=== PATIENT | female | born 1950 | race Caucasian/White ===

== ENCOUNTER 2019-03-18 17:44 | Inpatient (IN) | payer MEDICARE, BC ==
[~2019-03-18 17:44] MED LIST: Sodium Chloride 0.9% 10 ML Syringe FLUSH PRN
[2019-03-18 18:30] LABS: ANION GAP 16.5; CHLORIDE,CL 97 mmol/L (101-111); SODIUM,NA 129 mmol/L (135-145)
[2019-03-18] MEDS ORDERED: HYDROmorphone 1 MG/ML Syringe IVPUSH ONE (18:39)
[2019-03-18] MEDS ORDERED: Iopamidol 612 MG/ML 75 ML Bottle IVPUSH ONE (18:39)
--- NOTE | 2019-03-18 18:56 | EDM.PDOC ---
<Maria M Gaytan - Last Filed: 03/18/19 18:52> ED HPI GENERAL MEDICAL PROBLEM - General Chief Complaint: Abdominal Pain Stated Complaint: BACK/CHEST PAIN Time Seen by Provider: 03/18/19 18:00 Source of Information: Reports: Patient, Family, RN, RN Notes Reviewed History Limitations: Reports: No Limitations - History of Present Illness INITIAL COMMENTS - FREE TEXT/NARRATIVE: Pt to ER with c/o sharp lower abdominal pain, radiating into the back. Patient states the pain comes and goes. Also c/o pain radiating into the chest. Denies fever. States having chills today. Denies N/V/D. Admits to some constipation today. Patient denies any urinary sx. Denies medical problems. Takes meds for HTN, high cholesterol. Patient admits to some anxiety, took an anxiety medication prior to arrival. Onset: Today, Sudden Generalized Pain Score (Numeric/FACES): 6 - Related Data Allergies Allergy/AdvReac Type Severity Reaction Status Date / Time prochlorperazine edisylate Allergy Delusions Verified 03/18/19 17:50 [From Compazine] prochlorperazine maleate Allergy Delusions Verified 03/18/19 17:50 [From Compazine] Home Meds: Home Meds ALPRAZolam [ALPRAZolam ER] 1 mg PO PRN 01/21/14 [History] Lisinopril/Hydrochlorothiazide [Lisinopril-Hctz 10-12.5 mg Tab] 1 each PO DAILY 01/21/14 [History] Aspirin [Halfprin] 81 mg PO BEDTIME 03/18/19 [History] Multivits-Min/Iron/FA/Lutein [Centrum Silver Women Tablet] 1 each PO DAILY 03/18 [History] atorvaSTATin [Lipitor] 10 mg PO BEDTIME 03/18/19 [History] Past Medical History HEENT History: Reports: None Cardiovascular History: Reports: High Cholesterol, Hypertension Respiratory History: Reports: None Gastrointestinal History: Reports: None Genitourinary History: Reports: None ONCOLOGY PATIENT NAVIGATOR History: Reports: None Neurological History: Reports: None Psychiatric History: Reports: Anxiety Endocrine/Metabolic History: Reports: None Hematologic History: Reports: None Immunologic History: Reports: None Oncologic (Cancer) History: Reports: None Dermatologic History: Reports: None - Infectious Disease History Infectious Disease History: Reports: None - Past Surgical History Head Surgeries/Procedures: Reports: None HEENT Surgical History: Reports: Adenoidectomy, Tonsillectomy GI Surgical History: Reports: Appendectomy Female Surgical History: Reports: Hysterectomy Musculoskeletal Surgical History: Reports: Shoulder Surgery Social & Family History - Family History Family Medical History: Noncontributory - Tobacco Use Smoking Status *Q: Never Smoker Second Hand Smoke Exposure: No - Caffeine Use Caffeine Use: Reports: None - Recreational Drug Use Recreational Drug Use: No - Living Situation & Occupation Living situation: Reports: , with Family Occupation: Retired ED ROS GENERAL - Review of Systems Review Of Systems: ROS reveals no pertinent complaints other than HPI. ED EXAM, GENERAL - Physical Exam Exam: See Below Exam Limited By: No Limitations General Appearance: Alert, WD/WN, Anxious, Moderate Distress Eye Exam: Bilateral Eye: EOMI, Normal Inspection Ears: Normal External Exam, Hearing Grossly Normal Nose: Normal Inspection Throat/Mouth: Normal Inspection, Normal Voice, No Airway Compromise Head: Atraumatic, Normocephalic Neck: Normal Inspection, Supple, Non-Tender, Full Range of Motion Respiratory/Chest: No Respiratory Distress, Crackles (bases bilaterally) Cardiovascular: Normal Peripheral Pulses, Regular Rate, Rhythm, No Edema, No Gallop, No JVD, No Murmur, No Rub Peripheral Pulses: 2+: Radial (L), Radial (R) GI/Abdominal: Normal Bowel Sounds, Soft, Tender (RLQ, LLQ) (Female) Exam: Deferred Rectal (Female) Exam: Deferred Back Exam: Normal Inspection, CVA Tenderness (L), CVA Tenderness (R) Extremities: Normal Inspection, Normal Range of Motion, Non-Tender, Normal Capillary Refill, No Pedal Edema Neurological: Alert, Oriented, CN II-XII Intact, Normal Cognition, Normal Gait, Normal Reflexes, No Motor/Sensory Deficits Psychiatric: Anxious, Tearful Skin Exam: Warm, Dry, Intact, Normal Color, No Rash Lymphatic: No Adenopathy Course - Vital Signs Last Recorded V/S: Last Vital Signs Temp 37.4 C 03/18/19 17:51 Pulse 92 03/18/19 17:51 Resp 24 H 03/18/19 17:51 BP 148/69 H 03/18/19 17:51 Pulse Ox 95 03/18/19 17:51 - Orders/Labs/Meds Orders: Active Orders 24 hr Category Date Time Status EKG Documentation Completion [RC] STAT Care 03/18/19 17:39 Active Peripheral IV Care [RC] . DIRECTED Care 03/18/19 17:40 Active Abdomen Pelvis w Cont [CT] Urgent Exams 03/18/19 18:38 Taken Chest 1V Frontal [CR] Stat Exams 03/18/19 17:39 Taken CULTURE URINE [RM] Stat Lab 03/18/19 18:30 Received Sodium Chloride 0.9% [Saline Flush] Med 03/18/19 17:39 Active 10 ml FLUSH ASDIRECTED PRN Peripheral IV Insertion Adult [OM.PC] Stat Oth 03/18/19 17:39 Ordered Medication Orders Sodium Chloride (Saline Flush) 10 ml FLUSH ASDIRECTED PRN PRN Reason: Keep Vein Open Last Admin: 03/18/19 18:16 Dose: 10 ml Labs: Laboratory Tests 03/18/19 03/18/19 03/18/19 Range/Units 17:57 17:57 17:57 WBC 13.6 H (5.0-10.0) 10^3/uL RBC 4.07 L (4.2-5.4) 10^6/uL Hgb 12.2 (12.0-16.0) g/dL Hct 35.3 L (37.0-47.0) % MCV 86.7 (80-100) fL MCH 30.0 (27.0-34.0) pg MCHC 34.6 (33.0-35.0) g/dL Plt Count 334 (150-450) 10^3/uL Neut % (Auto) 81.8 H (42.2-75.2) % Lymph % (Auto) 10.4 L (20.5-50.1) % [place] % (Auto) 7.4 (2-8) % Eos % (Auto) 0.3 L (1.0-3.0) % Baso % (Auto) 0.1 (0.0-1.0) % PT 9.5 (9.0-12.0) SEC INR 0.9 (0.9-1.2) Sodium 129 L (135-145) mmol/L Potassium 3.5 L (3.6-5.0) mmol/L Chloride 97 L (101-111) mmol/L Carbon Dioxide 19.0 L (21.0-31.0) mmol/L Anion Gap 16.5 BUN 18 (7-18) mg/dL Creatinine 0.9 (0.6-1.3) mg/dL Est Cr Clr Drug Dosing 50.23 mL/min Estimated GFR (MDRD) > 60 BUN/Creatinine Ratio 20.00 Glucose 103 (74-105) mg/dL Calcium 9.0 (8.4-10.2) mg/dl Total Bilirubin 0.6 (0.2-1.0) mg/dL AST 24 (10-42) IU/L ALT 17 (10-60) IU/L Alkaline Phosphatase 72 (42-121) IU/L Troponin I < 0.02 (0.00-0.02) ng/ml Total Protein 6.8 (6.7-8.2) g/dl Albumin 4.1 (3.2-5.5) g/dl Globulin 2.7 Albumin/Globulin Ratio 1.52 Urine Color (YELLOW) Urine Appearance (CLEAR) Urine pH (5.0-9.0) Ur Specific [place] (1.005-1.030) Urine Protein (NEGATIVE) Urine Glucose (UA) (NEGATIVE) Urine Ketones (NEGATIVE) Urine Occult Blood (NEGATIVE) Urine Nitrite (NEGATIVE) Urine Bilirubin (NEGATIVE) Urine Urobilinogen (0.2-1.0) mg/dL Ur Leukocyte Esterase (NEGATIVE) Urine RBC /HPF Urine WBC (0-5/HPF) /HPF Ur Epithelial Cells (NOT SEEN) /HPF Urine Bacteria (0-FEW/HPF) /HPF 03/18/19 Range/Units 18:30 WBC (5.0-10.0) 10^3/uL RBC (4.2-5.4) 10^6/uL Hgb (12.0-16.0) g/dL Hct (37.0-47.0) % MCV (80-100) fL MCH (27.0-34.0) pg MCHC (33.0-35.0) g/dL Plt Count (150-450) 10^3/uL Neut % (Auto) (42.2-75.2) % Lymph % (Auto) (20.5-50.1) % [place] % (Auto) (2-8) % Eos % (Auto) (1.0-3.0) % Baso % (Auto) (0.0-1.0) % PT (9.0-12.0) SEC INR (0.9-1.2) Sodium (135-145) mmol/L Potassium (3.6-5.0) mmol/L Chloride (101-111) mmol/L Carbon Dioxide (21.0-31.0) mmol/L Anion Gap BUN (7-18) mg/dL Creatinine (0.6-1.3) mg/dL Est Cr Clr Drug Dosing mL/min Estimated GFR (MDRD) BUN/Creatinine Ratio Glucose (74-105) mg/dL Calcium (8.4-10.2) mg/dl Total Bilirubin (0.2-1.0) mg/dL AST (10-42) IU/L ALT (10-60) IU/L Alkaline Phosphatase (42-121) IU/L Troponin I (0.00-0.02) ng/ml Total Protein (6.7-8.2) g/dl Albumin (3.2-5.5) g/dl Globulin Albumin/Globulin Ratio Urine Color Yellow (YELLOW) Urine Appearance Clear (CLEAR) Urine pH 8.5 (5.0-9.0) Ur Specific [place] 1.015 (1.005-1.030) Urine Protein Negative (NEGATIVE) Urine Glucose (UA) Negative (NEGATIVE) Urine Ketones Negative (NEGATIVE) Urine Occult Blood Trace-intact H (NEGATIVE) Urine Nitrite Negative (NEGATIVE) Urine Bilirubin Negative (NEGATIVE) Urine Urobilinogen 0.2 (0.2-1.0) mg/dL Ur Leukocyte Esterase Moderate H (NEGATIVE) Urine RBC 0-5 /HPF Urine WBC 5-10 H (0-5/HPF) /HPF Ur Epithelial Cells Occasional (NOT SEEN) /HPF Urine Bacteria Few (0-FEW/HPF) /HPF Meds: Medications Generic Name Dose Route Start Last Admin Trade Name Freq PRN Reason Stop Dose Admin Sodium Chloride 10 ml 03/18/19 17:39 03/18/19 18:16 Saline Flush FLUSH 10 ml ASDIRECTED PRN Administration Keep Vein Open Discontinued Medications Generic Name Dose Route Start Last Admin Trade Name Freq PRN Reason Stop Dose Admin Hydromorphone HCl 1 mg 03/18/19 18:39 03/18/19 19:16 Dilaudid IVPUSH 03/18/19 18:40 1 mg ONETIME ONE Administration Iopamidol 75 ml 03/18/19 18:39 03/18/19 18:48 Isovue-300 (61%) IVPUSH 03/18/19 18:40 75 ml ONETIME ONE Administration - Radiology Interpretation Free Text/Narrative:: Chest xray: See rad report Departure - Departure Disposition: Admitted As Inpatient 64 Clinical Impression: Diverticulitis large intestine w/o perforation or abscess w/o bleeding, Hyponatremia syndrome - Discharge Information Forms: ED Department Discharge <Steffen Turk - Last Filed: 03/18/19 19:55> Course - Re-Assessments/Exams Free Text/Narrative Re-Assessment/Exam: 03/18/19 19:[address] Rivera who kindly admitted pt Departure - Departure Time of Disposition: 19:54 Condition: Good
[2019-03-18] MEDS ORDERED: ALPRAZOLAM 0.5 MG PO PRN (21:17)
[2019-03-18] MEDS ORDERED: Ondansetron 4 MG/2 ML SDV IVPUSH PRN (21:19)
[2019-03-18] MEDS ORDERED: Docusate Sodium 100 MG Cap PO PRN (21:19)
[2019-03-18] MEDS ORDERED: Piperacillin/Tazobactam 3.375 GM in Sodium Chloride 0.9% 100 ML IV SCH (21:30)
[2019-03-18] MEDS: diphenhydrAMINE 25 MG Tab PO PRN (21:58)
[2019-03-18] MEDS: Calcium Carbonate 500 MG Tab.Chew PO PRN (21:58)
[2019-03-18] MEDS: ALPRAZolam 0.5 MG Tab PO PRN (22:03)
[2019-03-18] MEDS: Heparin Sodium 5,000 Units/ML Vial SUBCUT SCH (22:12)
[2019-03-18] MEDS: Piperacillin/Tazobactam 3.375 GM in Sodium Chloride 0.9% 100 ML IV SCH (23:11)
[2019-03-18] MEDS ORDERED: Potassium Chloride 10 MEQ Tab.ER PO ONE (23:15)
--- NOTE | 2019-03-18 23:15 | PCM.HP ---
H&P History of Present Illness - General Date of Service: 03/18/19 Admit Problem/Dx: Admission Diagnosis/Problem Admission Diagnosis/Problem Diverticulitis Source of Information: Patient - History of Present Illness Initial Comments - Free Text/Narative: 68-year-old generally active lady with a history of hypertension, dyslipidemia. Has developed lower abdominal pain. The pain has imprisoned for about 2 weeks on and off. Got more severe on the day of admission. No associated fever, had nausea. No vomiting. Also had an episode of chest pain. Not associated with shortness of breath. Quality: Reports: Sharp Severity: Moderate Improves with: Reports: Medication (Dilaudid in the emergency room) Context: Reports: Activity/Exercise (With no associated chest pain). Denies: Sick Contact Associated Symptoms: Reports: Other (Anxiety) Generalized Pain Score (Numeric/FACES): 6 - Related Data Allergies/Adverse Reactions: Allergies Allergy/AdvReac Type Severity Reaction Status Date / Time prochlorperazine edisylate Allergy Delusions Verified 03/18/19 20:36 [From Compazine] Home Medications: Home Meds Lisinopril/Hydrochlorothiazide [Lisinopril-Hctz 10-12.5 mg Tab] 1 tab PO DAILY 01/21/14 [History] ALPRAZolam [Alprazolam] 0.5 mg PO BID PRN 03/18/19 [History] Aspirin [Halfprin] 81 mg PO BEDTIME 03/18/19 [History] Multivits-Min/Iron/FA/Lutein [Centrum Silver Women Tablet] 1 tab PO DAILY [History] atorvaSTATin [Lipitor] 10 mg PO BEDTIME 03/18/19 [History] Past Medical History HEENT History: Reports: Impaired Vision Cardiovascular History: Reports: High Cholesterol, Hypertension Respiratory History: Reports: None Gastrointestinal History: Reports: None Genitourinary History: Reports: None COMPOUNDER History: Reports: None Musculoskeletal History: Reports: None Neurological History: Reports: Seizure Psychiatric History: Reports: Anxiety Endocrine/Metabolic History: Reports: None Hematologic History: Reports: None Immunologic History: Reports: None Oncologic (Cancer) History: Reports: Cervix Dermatologic History: Reports: None - Infectious Disease History Infectious Disease History: Reports: None - Past Surgical History Head Surgeries/Procedures: Reports: None HEENT Surgical History: Reports: Adenoidectomy, Tonsillectomy Cardiovascular Surgical History: Reports: None GI Surgical History: Reports: Appendectomy, Colonoscopy Female Surgical History: Reports: Hysterectomy Neurological Surgical History: Reports: None Musculoskeletal Surgical History: Reports: Shoulder Surgery Oncologic Surgical History: Reports: Other (See Below) Other Oncologic Surgeries/Procedures: Hysterectomy Social & Family History - Family History Family Medical History: Noncontributory - Tobacco Use Smoking Status *Q: Never Smoker Second Hand Smoke Exposure: No - Caffeine Use Caffeine Use: Reports: None - Recreational Drug Use Recreational Drug Use: No - Living Situation & Occupation Living situation: Reports: , with Family Occupation: Retired H&P Review of Systems - Review of Systems: Review Of Systems: See Below General: Denies: Fever, Chills Pulmonary: Denies: Shortness of Breath Cardiovascular: Reports: Chest Pain. Denies: Edema Gastrointestinal: Reports: Abdominal Pain Genitourinary: Denies: Dysuria, Frequency Neurological: Denies: Confusion, Dizziness Exam - Exam Exam: See Below - Vital Signs Vital Signs: Last Vital Signs Temp 37.2 C 03/18/19 23:10 Pulse 83 03/18/19 23:10 Resp 18 03/18/19 23:10 BP 108/52 L 03/18/19 23:10 Pulse Ox 100 03/18/19 23:10 Weight: 57.243 kg - Exam General: Alert, Oriented Neck: Supple Lungs: Clear to Auscultation, Normal Respiratory Effort Cardiovascular: Regular Rate, Regular Rhythm GI/Abdominal Exam: Normal Bowel Sounds, Soft, Tender (Bilateral lower quadrants) . No: Rigid, Rebound Rectal (Female) Exam: Normal Exam Extremities: No Pedal Edema Skin: Warm, Dry Neuro Extensive - Mental Status: Alert, Oriented x3 Psychiatric: Alert, Normal Affect, Normal Mood - Patient Data Lab Results Last 24 hrs: Laboratory Results - last 24 hr 03/18/19 03/18/19 03/18/19 Range/Units 17:57 17:57 17:57 WBC 13.6 H (5.0-10.0) 10^3/uL RBC 4.07 L (4.2-5.4) 10^6/uL Hgb 12.2 (12.0-16.0) g/dL Hct 35.3 L (37.0-47.0) % MCV 86.7 (80-100) fL MCH 30.0 (27.0-34.0) pg MCHC 34.6 (33.0-35.0) g/dL Plt Count 334 (150-450) 10^3/uL Neut % (Auto) 81.8 H (42.2-75.2) % Lymph % (Auto) 10.4 L (20.5-50.1) % [place] % (Auto) 7.4 (2-8) % Eos % (Auto) 0.3 L (1.0-3.0) % Baso % (Auto) 0.1 (0.0-1.0) % PT 9.5 (9.0-12.0) SEC INR 0.9 (0.9-1.2) Sodium 129 L (135-145) mmol/L Potassium 3.5 L (3.6-5.0) mmol/L Chloride 97 L (101-111) mmol/L Carbon Dioxide 19.0 L (21.0-31.0) mmol/L Anion Gap 16.5 BUN 18 (7-18) mg/dL Creatinine 0.9 (0.6-1.3) mg/dL Est Cr Clr Drug Dosing 50.23 mL/min Estimated GFR (MDRD) > 60 BUN/Creatinine Ratio 20.00 Glucose 103 (74-105) mg/dL Calcium 9.0 (8.4-10.2) mg/dl Total Bilirubin 0.6 (0.2-1.0) mg/dL AST 24 (10-42) IU/L ALT 17 (10-60) IU/L Alkaline Phosphatase 72 (42-121) IU/L Troponin I < 0.02 (0.00-0.02) ng/ml Total Protein 6.8 (6.7-8.2) g/dl Albumin 4.1 (3.2-5.5) g/dl Globulin 2.7 Albumin/Globulin Ratio 1.52 Urine Color (YELLOW) Urine Appearance (CLEAR) Urine pH (5.0-9.0) Ur Specific [place] (1.005-1.030) Urine Protein (NEGATIVE) Urine Glucose (UA) (NEGATIVE) Urine Ketones (NEGATIVE) Urine Occult Blood (NEGATIVE) Urine Nitrite (NEGATIVE) Urine Bilirubin (NEGATIVE) Urine Urobilinogen (0.2-1.0) mg/dL Ur Leukocyte Esterase (NEGATIVE) Urine RBC /HPF Urine WBC (0-5/HPF) /HPF Ur Epithelial Cells (NOT SEEN) /HPF Urine Bacteria (0-FEW/HPF) /HPF 03/18/19 Range/Units 18:30 WBC (5.0-10.0) 10^3/uL RBC (4.2-5.4) 10^6/uL Hgb (12.0-16.0) g/dL Hct (37.0-47.0) % MCV (80-100) fL MCH (27.0-34.0) pg MCHC (33.0-35.0) g/dL Plt Count (150-450) 10^3/uL Neut % (Auto) (42.2-75.2) % Lymph % (Auto) (20.5-50.1) % [place] % (Auto) (2-8) % Eos % (Auto) (1.0-3.0) % Baso % (Auto) (0.0-1.0) % PT (9.0-12.0) SEC INR (0.9-1.2) Sodium (135-145) mmol/L Potassium (3.6-5.0) mmol/L Chloride (101-111) mmol/L Carbon Dioxide (21.0-31.0) mmol/L Anion Gap BUN (7-18) mg/dL Creatinine (0.6-1.3) mg/dL Est Cr Clr Drug Dosing mL/min Estimated GFR (MDRD) BUN/Creatinine Ratio Glucose (74-105) mg/dL Calcium (8.4-10.2) mg/dl Total Bilirubin (0.2-1.0) mg/dL AST (10-42) IU/L ALT (10-60) IU/L Alkaline Phosphatase (42-121) IU/L Troponin I (0.00-0.02) ng/ml Total Protein (6.7-8.2) g/dl Albumin (3.2-5.5) g/dl Globulin Albumin/Globulin Ratio Urine Color Yellow (YELLOW) Urine Appearance Clear (CLEAR) Urine pH 8.5 (5.0-9.0) Ur Specific [place] 1.015 (1.005-1.030) Urine Protein Negative (NEGATIVE) Urine Glucose (UA) Negative (NEGATIVE) Urine Ketones Negative (NEGATIVE) Urine Occult Blood Trace-intact H (NEGATIVE) Urine Nitrite Negative (NEGATIVE) Urine Bilirubin Negative (NEGATIVE) Urine Urobilinogen 0.2 (0.2-1.0) mg/dL Ur Leukocyte Esterase Moderate H (NEGATIVE) Urine RBC 0-5 /HPF Urine WBC 5-10 H (0-5/HPF) /HPF Ur Epithelial Cells Occasional (NOT SEEN) /HPF Urine Bacteria Few (0-FEW/HPF) /HPF Result Diagrams: 03/18/19 17:57 03/18/19 17:57 - Problem List (1) Diverticulitis large intestine w/o perforation or abscess w/o bleeding SNOMED Code(s): 8543786 ICD Code: K57.32 - DVTRCLI OF LG INT W/O PERFORATION OR ABSCESS W/O BLEEDING Status: Acute Current Visit: Yes (2) Hyponatremia syndrome SNOMED Code(s): 6229199 ICD Code: E87.1 - HYPO-OSMOLALITY AND HYPONATREMIA Status: Acute Current Visit: Yes Problem List Initiated/Reviewed/Updated: Yes Orders Last 24hrs: Active Orders 24 hr Category Date Time Status Patient Status [ADT] Routine ADT 03/18/19 21:19 Active Antiembolic Devices [RC] 08,20 Care 03/18/19 21:21 Active Oxygen Therapy [RC] .PRN Care 03/18/19 21:19 Active Up ad [place] [RC] ASDIRECTED Care 03/18/19 21:19 Active VTE/DVT Education [RC] PER UNIT ROUTINE Care 03/18/19 21:19 Active Vital Signs [RC] 00,04,08,12,16,20 Care 03/18/19 21:19 Active Full Liquid Diet [DIET] Diet 03/18/19 Breakfast Active BASIC METABOLIC PANEL,BMP [CHEM] AM Lab 03/19/19 05:15 Ordered CBC WITH AUTO DIFF [HEME] AM Lab 03/19/19 05:15 Ordered CULTURE BLOOD [BC] Stat Lab 03/18/19 21:41 Received CULTURE BLOOD [BC] Stat Lab 03/18/19 21:46 Received CULTURE URINE [RM] Stat Lab 03/18/19 18:30 Received TROPONIN I [CHEM] AM Lab 03/19/19 05:11 Ordered ALPRAZolam [Xanax] Med 03/18/19 21:44 Active 0.5 mg PO BID PRN Acetaminophen [Tylenol] Med 03/18/19 21:19 Active 650 mg PO Q4H PRN Acetaminophen/HYDROcodone [[place] 325-10 MG] Med 03/18/19 21:19 Active 1 tab PO Q4H PRN Aspirin [Halfprin] Med 03/19/19 21:00 Active 81 mg PO BEDTIME Calcium Carbonate [Tums] Med 03/18/19 21:16 Active 500 mg PO Q2H PRN Docusate Sodium [Colace] Med 03/18/19 21:19 Active 100 mg PO BID PRN Heparin Sodium Med 03/18/19 22:00 Active 5,000 units SUBCUT Q8HR Lisinopril [Prinivil] Med 03/19/19 09:00 Active 10 mg PO DAILY Morphine Med 03/18/19 21:19 Active 1 mg IVPUSH Q2H PRN Ondansetron [Zofran ODT] Med 03/18/19 21:19 Active 4 mg PO Q6H PRN Ondansetron [Zofran] Med 03/18/19 21:19 Active 4 mg IVPUSH Q6H PRN Piperacillin/Tazobactam [Zosyn] 3.375 gm Med 03/19/19 00:00 Active Sodium Chloride 0.9% [Normal Saline] 100 ml IV Q6H Sodium Chloride 0.9% [Saline Flush] Med 03/18/19 17:39 Active 10 ml FLUSH ASDIRECTED PRN atorvaSTATin [Lipitor] Med 03/19/19 21:00 Active 10 mg PO BEDTIME diphenhydrAMINE [Benadryl] Med 03/18/19 21:17 Active 25 mg PO BEDTIME PRN hydroCHLOROthiazide Med 03/19/19 09:00 Active 12.5 mg PO DAILY Antiembolic Hose [OM.PC] Per Unit Routine Oth 03/18/19 21:20 Ordered Blood Culture x2 Reflex Set [OM.PC] Stat Oth 03/18/19 21:16 Ordered Peripheral IV Insertion Adult [OM.PC] Stat Oth 03/18/19 17:39 Ordered Resuscitation Status Routine Resus Stat 03/18/19 21:19 Ordered Medication Orders Acetaminophen (Tylenol) 650 mg PO Q4H PRN PRN Reason: Pain (Mild 1-3)/fever Hydrocodone Bitart/Acetaminophen ([place] 325-10 Mg) 1 tab PO Q4H PRN PRN Reason: Pain (moderate 4-6) Alprazolam (Xanax) 0.5 mg PO BID PRN PRN Reason: Anxiety Last Admin: 03/18/19 22:03 Dose: 0.5 mg Aspirin (Halfprin) 81 mg PO BEDTIME MONIKA Atorvastatin Calcium (Lipitor) 10 mg PO BEDTIME [facility] Calcium Carbonate/Glycine (Tums) 500 mg PO Q2H PRN PRN Reason: Heartburn Last Admin: 03/18/19 21:58 Dose: 500 mg Diphenhydramine HCl (Benadryl) 25 mg PO BEDTIME PRN PRN Reason: Sleep Last Admin: 03/18/19 21:58 Dose: 25 mg Docusate Sodium (Colace) 100 mg PO BID PRN PRN Reason: Constipation Heparin Sodium (Porcine) (Heparin Sodium) 5,000 units SUBCUT Q8HR MONIKA Last Admin: 03/18/19 22:12 Dose: 5,000 units Hydrochlorothiazide (Hydrochlorothiazide) 12.5 mg PO DAILY [facility] Piperacillin Sod/Tazobactam (Sod 3.375 gm/ Sodium Chloride) 100 mls @ 200 mls/ hr IV Q6H [facility] Lisinopril (Prinivil) 10 mg PO DAILY [facility] Morphine Sulfate (Morphine) 1 mg IVPUSH Q2H PRN PRN Reason: Pain (severe 7-10) Ondansetron HCl (Zofran) 4 mg IVPUSH Q6H PRN PRN Reason: Nausea/Vomiting Ondansetron HCl (Zofran Odt) 4 mg PO Q6H PRN PRN Reason: nausea, able to take PO Sodium Chloride (Saline Flush) 10 ml FLUSH ASDIRECTED PRN PRN Reason: Keep Vein Open Last Admin: 03/18/19 18:16 Dose: 10 ml Assessment/Plan Comment:: 68-year-old lady presented with abdominal pain CT showed diverticulitis without abscess Obtain blood culture Start empirical treatment with Zosyn Clear liquid diet Hypokalemia We'll replace and recheck Hyponatremia Will give IV fluids and recheck Hypertension Continue lisinopril If hyponatremia does not correct stop hydrochlorothiazide Anxiety Use Xanax when necessary Chest pain Atypical For now check troponin Follow-up as outpatient Aspirin for prophylaxis DVT prophylaxis with subcutaneous heparin
[2019-03-18] MEDS: NS + KCl 20mEq/L 1,000 ML IV SCH (23:46)
[2019-03-19] MEDS: Acetaminophen 325 MG Tab PO PRN (00:40)
[2019-03-19] MEDS: Calcium Carbonate 500 MG Tab.Chew PO PRN ×4 (00:40→20:35)
[2019-03-19] MEDS: Piperacillin/Tazobactam 3.375 GM in Sodium Chloride 0.9% 100 ML IV SCH ×3 (05:12→17:15)
[2019-03-19] MEDS: Heparin Sodium 5,000 Units/ML Vial SUBCUT SCH ×3 (05:12→22:01)
[2019-03-19 06:58] LABS: ANION GAP 12.4; CHLORIDE,CL 103 mmol/L (101-111); SODIUM,NA 132 mmol/L (135-145)
[2019-03-19] MEDS: Hydrochlorothiazide 25 MG Tab PO SCH (08:12)
[2019-03-19] MEDS: Lisinopril 10 MG Tab PO SCH (08:12)
[2019-03-19] MEDS ORDERED: Loperamide 2 MG Cap PO PRN (11:11)
--- NOTE | 2019-03-19 11:14 | PCM.PN ---
- General Info Date of Service: 03/19/19 Admission Dx/Problem (Free Text): Admission Diagnosis/Problem Admission Diagnosis/Problem Diverticulitis Subjective Update: Continues to have mild to moderate sharp pain in the lower abdominal areas. Associated with diarrhea. No fever or chills. No further chest pain. No shortness of breath. - Review of Systems General: Denies: Weakness Pulmonary: Denies: Shortness of Breath Cardiovascular: Denies: Chest Pain, Palpitations Gastrointestinal: Reports: Abdominal Pain Genitourinary: Denies: Dysuria Neurological: Denies: Confusion - Patient Data Vitals - Most Recent: Last Vital Signs Temp 36.4 C 03/19/19 08:15 Pulse 84 03/19/19 08:15 Resp 20 03/19/19 08:15 BP 95/45 L 03/19/19 08:15 Pulse Ox 100 03/19/19 08:15 Weight - Most Recent: 57.243 kg I&O - Last 24 Hours: Intake & Output 03/18/19 03/19/19 03/19/19 22:59 06:59 14:59 Intake Total 200 50 Output Total 700 Balance -500 50 Lab Results Last 24 Hours: Laboratory Results - last 24 hr 03/18/19 03/18/19 03/18/19 Range/Units 17:57 17:57 17:57 WBC 13.6 H (5.0-10.0) 10^3/uL RBC 4.07 L (4.2-5.4) 10^6/uL Hgb 12.2 (12.0-16.0) g/dL Hct 35.3 L (37.0-47.0) % MCV 86.7 (80-100) fL MCH 30.0 (27.0-34.0) pg MCHC 34.6 (33.0-35.0) g/dL Plt Count 334 (150-450) 10^3/uL Neut % (Auto) 81.8 H (42.2-75.2) % Lymph % (Auto) 10.4 L (20.5-50.1) % [place] % (Auto) 7.4 (2-8) % Eos % (Auto) 0.3 L (1.0-3.0) % Baso % (Auto) 0.1 (0.0-1.0) % PT 9.5 (9.0-12.0) SEC INR 0.9 (0.9-1.2) Sodium 129 L (135-145) mmol/L Potassium 3.5 L (3.6-5.0) mmol/L Chloride 97 L (101-111) mmol/L Carbon Dioxide 19.0 L (21.0-31.0) mmol/L Anion Gap 16.5 BUN 18 (7-18) mg/dL Creatinine 0.9 (0.6-1.3) mg/dL Est Cr Clr Drug Dosing 50.23 mL/min Estimated GFR (MDRD) > 60 BUN/Creatinine Ratio 20.00 Glucose 103 (74-105) mg/dL Calcium 9.0 (8.4-10.2) mg/dl Total Bilirubin 0.6 (0.2-1.0) mg/dL AST 24 (10-42) IU/L ALT 17 (10-60) IU/L Alkaline Phosphatase 72 (42-121) IU/L Troponin I < 0.02 (0.00-0.02) ng/ml Total Protein 6.8 (6.7-8.2) g/dl Albumin 4.1 (3.2-5.5) g/dl Globulin 2.7 Albumin/Globulin Ratio 1.52 Urine Color (YELLOW) Urine Appearance (CLEAR) Urine pH (5.0-9.0) Ur Specific [place] (1.005-1.030) Urine Protein (NEGATIVE) Urine Glucose (UA) (NEGATIVE) Urine Ketones (NEGATIVE) Urine Occult Blood (NEGATIVE) Urine Nitrite (NEGATIVE) Urine Bilirubin (NEGATIVE) Urine Urobilinogen (0.2-1.0) mg/dL Ur Leukocyte Esterase (NEGATIVE) Urine RBC /HPF Urine WBC (0-5/HPF) /HPF Ur Epithelial Cells (NOT SEEN) /HPF Urine Bacteria (0-FEW/HPF) /HPF 03/18/19 03/19/19 03/19/19 Range/Units 18:30 06:09 06:09 WBC 9.3 (5.0-10.0) 10^3/uL RBC 3.87 L (4.2-5.4) 10^6/uL Hgb 11.7 L (12.0-16.0) g/dL Hct 34.3 L (37.0-47.0) % MCV 88.6 (80-100) fL MCH 30.2 (27.0-34.0) pg MCHC 34.1 (33.0-35.0) g/dL Plt Count 300 (150-450) 10^3/uL Neut % (Auto) 72.7 (42.2-75.2) % Lymph % (Auto) 16.6 L (20.5-50.1) % [place] % (Auto) 9.9 H (2-8) % Eos % (Auto) 0.6 L (1.0-3.0) % Baso % (Auto) 0.2 (0.0-1.0) % PT (9.0-12.0) SEC INR (0.9-1.2) Sodium 132 L (135-145) mmol/L Potassium 4.4 (3.6-5.0) mmol/L Chloride 103 (101-111) mmol/L Carbon Dioxide 21.0 (21.0-31.0) mmol/L Anion Gap 12.4 BUN 12 (7-18) mg/dL Creatinine 1.0 (0.6-1.3) mg/dL Est Cr Clr Drug Dosing 43.30 mL/min Estimated GFR (MDRD) 55 BUN/Creatinine Ratio Glucose 110 H (74-105) mg/dL Calcium 8.7 (8.4-10.2) mg/dl Total Bilirubin (0.2-1.0) mg/dL AST (10-42) IU/L ALT (10-60) IU/L Alkaline Phosphatase (42-121) IU/L Troponin I < 0.02 (0.00-0.02) ng/ml Total Protein (6.7-8.2) g/dl Albumin (3.2-5.5) g/dl Globulin Albumin/Globulin Ratio Urine Color Yellow (YELLOW) Urine Appearance Clear (CLEAR) Urine pH 8.5 (5.0-9.0) Ur Specific [place] 1.015 (1.005-1.030) Urine Protein Negative (NEGATIVE) Urine Glucose (UA) Negative (NEGATIVE) Urine Ketones Negative (NEGATIVE) Urine Occult Blood Trace-intact H (NEGATIVE) Urine Nitrite Negative (NEGATIVE) Urine Bilirubin Negative (NEGATIVE) Urine Urobilinogen 0.2 (0.2-1.0) mg/dL Ur Leukocyte Esterase Moderate H (NEGATIVE) Urine RBC 0-5 /HPF Urine WBC 5-10 H (0-5/HPF) /HPF Ur Epithelial Cells Occasional (NOT SEEN) /HPF Urine Bacteria Few (0-FEW/HPF) /HPF Med Orders - Current: Current Medications Acetaminophen (Tylenol) 650 mg PO Q4H PRN PRN Reason: Pain (Mild 1-3)/fever Last Admin: 03/19/19 00:40 Dose: 650 mg Hydrocodone Bitart/Acetaminophen ([place] 325-10 Mg) 1 tab PO Q4H PRN PRN Reason: Pain (moderate 4-6) Alprazolam (Xanax) 0.5 mg PO BID PRN PRN Reason: Anxiety Last Admin: 03/18/19 22:03 Dose: 0.5 mg Aspirin (Halfprin) 81 mg PO BEDTIME MONIKA Atorvastatin Calcium (Lipitor) 10 mg PO BEDTIME [facility] Calcium Carbonate/Glycine (Tums) 500 mg PO Q2H PRN PRN Reason: Heartburn Last Admin: 03/19/19 11:10 Dose: 500 mg Diphenhydramine HCl (Benadryl) 25 mg PO BEDTIME PRN PRN Reason: Sleep Last Admin: 03/18/19 21:58 Dose: 25 mg Docusate Sodium (Colace) 100 mg PO BID PRN PRN Reason: Constipation Heparin Sodium (Porcine) (Heparin Sodium) 5,000 units SUBCUT Q8HR [facility] Last Admin: 03/19/19 05:12 Dose: 5,000 units Hydrochlorothiazide (Hydrochlorothiazide) 12.5 mg PO DAILY [facility] Last Admin: 03/19/19 08:12 Dose: 12.5 mg Piperacillin Sod/Tazobactam (Sod 3.375 gm/ Sodium Chloride) 100 mls @ 200 mls/ hr IV Q6H [facility] Last Admin: 03/19/19 05:12 Dose: 200 mls/hr Potassium Chloride/Sodium Chloride (Normal Saline With 20 Meq Kcl) 1,000 mls @ 75 mls/hr IV ASDIRECTED [facility] Last Admin: 03/18/19 23:46 Dose: 75 mls/hr Lisinopril (Prinivil) 10 mg PO DAILY [facility] Last Admin: 03/19/19 08:12 Dose: 10 mg Loperamide HCl (Imodium) 2 mg PO Q6H PRN PRN Reason: Diarrhea Morphine Sulfate (Morphine) 1 mg IVPUSH Q2H PRN PRN Reason: Pain (severe 7-10) Ondansetron HCl (Zofran) 4 mg IVPUSH Q6H PRN PRN Reason: Nausea/Vomiting Ondansetron HCl (Zofran Odt) 4 mg PO Q6H PRN PRN Reason: nausea, able to take PO Sodium Chloride (Saline Flush) 10 ml FLUSH ASDIRECTED PRN PRN Reason: Keep Vein Open Last Admin: 03/18/19 18:16 Dose: 10 ml Discontinued Medications Hydromorphone HCl (Dilaudid) 1 mg IVPUSH ONETIME ONE Stop: 03/18/19 18:40 Last Admin: 03/18/19 19:16 Dose: 1 mg Piperacillin Sod/Tazobactam (Sod 3.375 gm/ Sodium Chloride) 100 mls @ 200 mls/ hr IV Q6H [facility]IKA Last Admin: 03/18/19 21:57 Dose: 200 mls/hr Iopamidol (Isovue-300 (61%)) 75 ml IVPUSH ONETIME ONE Stop: 03/18/19 18:40 Last Admin: 03/18/19 18:48 Dose: 75 ml Non-Formulary Medication (Alprazolam [Alprazolam Er]) 0.5 mg PO BID PRN PRN Reason: Anxiety Potassium Chloride (Klor-Con 10) 40 meq PO ONETIME ONE Stop: 03/18/19 23:16 Last Admin: 03/18/19 23:45 Dose: 40 meq - Exam General: Alert, Oriented Neck: Supple Lungs: Clear to Auscultation, Normal Respiratory Effort Cardiovascular: Regular Rate, Regular Rhythm GI/Abdominal Exam: Normal Bowel Sounds, Soft, Non-Tender Extremities: No Pedal Edema Skin: Warm, Dry Neurological: No New Focal Deficit Psy/Mental Status: Alert, Normal Affect, Normal Mood - Problem List & Annotations (1) Diverticulitis large intestine w/o perforation or abscess w/o bleeding SNOMED Code(s): 3268276 Code(s): K57.32 - DVTRCLI OF LG INT W/O PERFORATION OR ABSCESS W/O BLEEDING Status: Acute Current Visit: Yes (2) Hyponatremia syndrome SNOMED Code(s): 0304135 Code(s): E87.1 - HYPO-OSMOLALITY AND HYPONATREMIA Status: Acute Current Visit: Yes - Problem List Review Problem List Initiated/Reviewed/Updated: Yes - My Orders Last 24 Hours: My Active Orders 03/18/19 21:16 Calcium Carbonate [Tums] 500 mg PO Q2H PRN Blood Culture x2 Reflex Set [OM.PC] Stat 03/18/19 21:17 diphenhydrAMINE [Benadryl] 25 mg PO BEDTIME PRN 03/18/19 21:19 Patient Status [ADT] Routine Oxygen Therapy [RC] .PRN Up ad [place]anza [RC] ASDIRECTED VTE/DVT Education [RC] PER UNIT ROUTINE Vital Signs [RC] 00,04,08,12,16,20 Acetaminophen [Tylenol] 650 mg PO Q4H PRN Acetaminophen/HYDROcodone [[place] 325-10 MG] 1 tab PO Q4H PRN Docusate Sodium [Colace] 100 mg PO BID PRN Morphine 1 mg IVPUSH Q2H PRN Ondansetron [Zofran ODT] 4 mg PO Q6H PRN Ondansetron [Zofran] 4 mg IVPUSH Q6H PRN Resuscitation Status Routine 03/18/19 21:20 Antiembolic Hose [OM.PC] Per Unit Routine 03/18/19 21:21 Antiembolic Devices [RC] 08,20 03/18/19 21:41 CULTURE BLOOD [BC] Stat 03/18/19 21:44 ALPRAZolam [Xanax] 0.5 mg PO BID PRN 03/18/19 21:46 CULTURE BLOOD [BC] Stat 03/18/19 22:00 Heparin Sodium 5,000 units SUBCUT Q8HR 03/18/19 23:15 NS + KCl 20mEq/L [Normal Saline with 20 mEq KCl] 1,000 ml IV ASDIRECTED 03/19/19 00:00 Piperacillin/Tazobactam [Zosyn] 3.375 gm Sodium Chloride 0.9% [Normal Saline] 100 ml IV Q6H 03/19/19 09:00 Lisinopril [Prinivil] 10 mg PO DAILY hydroCHLOROthiazide 12.5 mg PO DAILY 03/19/19 11:11 Loperamide [Imodium] 2 mg PO Q6H PRN 03/19/19 21:00 Aspirin [Halfprin] 81 mg PO BEDTIME atorvaSTATin [Lipitor] 10 mg PO BEDTIME 03/20/19 05:15 BASIC METABOLIC PANEL,BMP [CHEM] AM CBC WITH AUTO DIFF [HEME] AM - Plan Plan:: 68-year-old lady presented with abdominal pain CT showed diverticulitis without abscess blood culture: pending Started empirical treatment with Zosyn Clear liquid diet add imodium for diarrhea Hypokalemia Was replaced and will recheck in AM Hyponatremia improved cont IV fluids and recheck Hypertension Continue lisinopril, hydrochlorothiazide Anxiety Use Xanax when necessary Chest pain Atypical For now check troponin Follow-up as outpatient Aspirin for prophylaxis DVT prophylaxis with subcutaneous heparin
[2019-03-19] MEDS: Acetaminophen/HYDROcodone 325-10 MG Tab PO PRN ×2 (12:09→18:08)
[2019-03-19] MEDS: Ondansetron 4 MG Tab.DIS PO PRN (12:11)
[2019-03-19] MEDS: Morphine 2 MG/ML Syringe IVPUSH PRN (12:11)
[2019-03-19] MEDS: NS + KCl 20mEq/L 1,000 ML IV SCH (13:58)
[2019-03-19] MEDS: ALPRAZolam 0.5 MG Tab PO PRN (20:32)
[2019-03-19] MEDS: Aspirin 81 MG Tab.EC PO SCH (20:32)
[2019-03-19] MEDS: diphenhydrAMINE 25 MG Tab PO PRN (20:32)
[2019-03-19] MEDS: atorvaSTATin 10 MG Tab PO SCH (20:32)
[2019-03-20] MEDS: Piperacillin/Tazobactam 3.375 GM in Sodium Chloride 0.9% 100 ML IV SCH ×5 (00:04→23:32)
[2019-03-20] MEDS: NS + KCl 20mEq/L 1,000 ML IV SCH ×2 (04:27→18:58)
[2019-03-20] MEDS: Heparin Sodium 5,000 Units/ML Vial SUBCUT SCH ×3 (05:56→21:06)
[2019-03-20] MEDS: ALPRAZolam 0.5 MG Tab PO PRN ×2 (06:01→21:06)
[2019-03-20 06:47] LABS: ANION GAP 11.1
[2019-03-20] MEDS: Hydrochlorothiazide 25 MG Tab PO SCH (08:32)
[2019-03-20] MEDS: Lisinopril 10 MG Tab PO SCH (10:09)
--- NOTE | 2019-03-20 11:55 | PCM.PN ---
- General Info Date of Service: 03/20/19 Admission Dx/Problem (Free Text): Admission Diagnosis/Problem Admission Diagnosis/Problem Diverticulitis Subjective Update: Continues to have mild, improved sharp pain in the lower abdominal areas. Associated with diarrhea and stool incontinence No fever or chills. No further chest pain. No shortness of breath. Functional Status: Reports: Tolerating Diet (full iquid) - Review of Systems General: Reports: Weakness Pulmonary: Denies: Shortness of Breath Cardiovascular: Denies: Chest Pain, Edema Gastrointestinal: Reports: Abdominal Pain Genitourinary: Denies: Dysuria Psychiatric: Denies: Confusion - Patient Data Vitals - Most Recent: Last Vital Signs Temp 36.6 C 03/20/19 07:35 Pulse 88 03/20/19 07:35 Resp 20 03/20/19 07:35 BP 103/48 L 03/20/19 10:09 Pulse Ox 98 03/20/19 07:35 Weight - Most Recent: 57.243 kg I&O - Last 24 Hours: Intake & Output 03/19/19 03/20/19 03/20/19 22:59 06:59 14:59 Intake Total 340 1200 240 Output Total 600 150 Balance -260 1050 240 Lab Results Last 24 Hours: Laboratory Results - last 24 hr 03/20/19 03/20/19 Range/Units 06:02 06:02 WBC 7.4 (5.0-10.0) 10^3/uL RBC 3.66 L (4.2-5.4) 10^6/uL Hgb 10.9 L (12.0-16.0) g/dL Hct 34.1 L (37.0-47.0) % MCV 93.2 D (80-100) fL MCH 29.8 (27.0-34.0) pg MCHC 32.0 L (33.0-35.0) g/dL Plt Count 302 (150-450) 10^3/uL Neut % (Auto) 68.8 (42.2-75.2) % Lymph % (Auto) 20.3 L (20.5-50.1) % [place] % (Auto) 8.5 H (2-8) % Eos % (Auto) 2.0 (1.0-3.0) % Baso % (Auto) 0.4 (0.0-1.0) % Sodium 133 L (135-145) mmol/L Potassium 4.1 (3.6-5.0) mmol/L Chloride 105 (101-111) mmol/L Carbon Dioxide 21.0 (21.0-31.0) mmol/L Anion Gap 11.1 BUN 7 (7-18) mg/dL Creatinine 1.0 (0.6-1.3) mg/dL Est Cr Clr Drug Dosing 43.30 mL/min Estimated GFR (MDRD) 55 Glucose 92 (74-105) mg/dL Calcium 8.3 L (8.4-10.2) mg/dl Zach Results Last 24 Hours: Microbiology 03/18/19 18:30 Urine Culture - Preliminary Urine, Clean Catch 03/18/19 21:46 Aerobic Blood Culture - Preliminary Blood - Venous - Lab Draw NO GROWTH AFTER 1 DAY Anaerobic Blood Culture - Preliminary NO GROWTH AFTER 1 DAY 03/18/19 21:41 Aerobic Blood Culture - Preliminary Blood - Venous NO GROWTH AFTER 1 DAY Anaerobic Blood Culture - Preliminary NO GROWTH AFTER 1 DAY Med Orders - Current: Current Medications Acetaminophen (Tylenol) 650 mg PO Q4H PRN PRN Reason: Pain (Mild 1-3)/fever Last Admin: 03/19/19 00:40 Dose: 650 mg Hydrocodone Bitart/Acetaminophen ([place] 325-10 Mg) 1 tab PO Q4H PRN PRN Reason: Pain (moderate 4-6) Last Admin: 03/19/19 18:08 Dose: 1 tab Alprazolam (Xanax) 0.5 mg PO BID PRN PRN Reason: Anxiety Last Admin: 03/20/19 06:01 Dose: 0.5 mg Aspirin (Halfprin) 81 mg PO BEDTIME MONIKA Last Admin: 03/19/19 20:32 Dose: 81 mg Atorvastatin Calcium (Lipitor) 10 mg PO BEDTIME MONIKA Last Admin: 03/19/19 20:32 Dose: 10 mg Calcium Carbonate/Glycine (Tums) 500 mg PO Q2H PRN PRN Reason: Heartburn Last Admin: 03/19/19 20:35 Dose: 500 mg Diphenhydramine HCl (Benadryl) 25 mg PO BEDTIME PRN PRN Reason: Sleep Last Admin: 03/19/19 20:32 Dose: 25 mg Docusate Sodium (Colace) 100 mg PO BID PRN PRN Reason: Constipation Heparin Sodium (Porcine) (Heparin Sodium) 5,000 units SUBCUT Q8HR [facility] Last Admin: 03/20/19 05:56 Dose: 5,000 units Hydrochlorothiazide (Hydrochlorothiazide) 12.5 mg PO DAILY [facility] Last Admin: 03/20/19 08:32 Dose: 12.5 mg Piperacillin Sod/Tazobactam (Sod 3.375 gm/ Sodium Chloride) 100 mls @ 200 mls/ hr IV Q6H [facility] Last Admin: 03/20/19 05:54 Dose: 200 mls/hr Potassium Chloride/Sodium Chloride (Normal Saline With 20 Meq Kcl) 1,000 mls @ 75 mls/hr IV ASDIRECTED [facility] Last Admin: 03/20/19 04:27 Dose: 75 mls/hr Lisinopril (Prinivil) 10 mg PO DAILY [facility] Last Admin: 03/20/19 10:09 Dose: 10 mg Loperamide HCl (Imodium) 2 mg PO Q6H PRN PRN Reason: Diarrhea Last Admin: 03/20/19 10:09 Dose: 2 mg Morphine Sulfate (Morphine) 1 mg IVPUSH Q2H PRN PRN Reason: Pain (severe 7-10) Last Admin: 03/19/19 12:11 Dose: 1 mg Ondansetron HCl (Zofran) 4 mg IVPUSH Q6H PRN PRN Reason: Nausea/Vomiting Ondansetron HCl (Zofran Odt) 4 mg PO Q6H PRN PRN Reason: nausea, able to take PO Last Admin: 03/19/19 12:11 Dose: 4 mg Sodium Chloride (Saline Flush) 10 ml FLUSH ASDIRECTED PRN PRN Reason: Keep Vein Open Last Admin: 03/18/19 18:16 Dose: 10 ml Discontinued Medications Hydromorphone HCl (Dilaudid) 1 mg IVPUSH ONETIME ONE Stop: 03/18/19 18:40 Last Admin: 03/18/19 19:16 Dose: 1 mg Piperacillin Sod/Tazobactam (Sod 3.375 gm/ Sodium Chloride) 100 mls @ 200 mls/ hr IV Q6H [facility] Last Admin: 03/18/19 21:57 Dose: 200 mls/hr Iopamidol (Isovue-300 (61%)) 75 ml IVPUSH ONETIME ONE Stop: 03/18/19 18:40 Last Admin: 03/18/19 18:48 Dose: 75 ml Non-Formulary Medication (Alprazolam [Alprazolam Er]) 0.5 mg PO BID PRN PRN Reason: Anxiety Potassium Chloride (Klor-Con 10) 40 meq PO ONETIME ONE Stop: 03/18/19 23:16 Last Admin: 03/18/19 23:45 Dose: 40 meq - Exam General: Alert, Oriented Neck: Supple Lungs: Clear to Auscultation, Normal Respiratory Effort Cardiovascular: Regular Rate, Regular Rhythm GI/Abdominal Exam: Normal Bowel Sounds, Soft, Tender (mild lower abd) Extremities: No Pedal Edema - Problem List & Annotations (1) Diverticulitis large intestine w/o perforation or abscess w/o bleeding SNOMED Code(s): 4667004 Code(s): K57.32 - DVTRCLI OF LG INT W/O PERFORATION OR ABSCESS W/O BLEEDING Status: Acute Current Visit: Yes (2) Hyponatremia syndrome SNOMED Code(s): 2689702 Code(s): E87.1 - HYPO-OSMOLALITY AND HYPONATREMIA Status: Acute Current Visit: Yes - Problem List Review Problem List Initiated/Reviewed/Updated: Yes - My Orders Last 24 Hours: My Active Orders 03/19/19 11:11 Loperamide [Imodium] 2 mg PO Q6H PRN 03/19/19 21:00 Aspirin [Halfprin] 81 mg PO BEDTIME atorvaSTATin [Lipitor] 10 mg PO BEDTIME 03/20/19 Lunch General [Regular Diet] [DIET] 03/21/19 05:15 BASIC METABOLIC PANEL,BMP [CHEM] AM CBC WITH AUTO DIFF [HEME] AM - Plan Plan:: 68-year-old lady presented with abdominal pain CT showed diverticulitis without abscess blood culture: pending Started empirical treatment with Zosyn advance diet add imodium for diarrhea Hypokalemia Was replaced and will recheck in AM Hyponatremia improved cont IV fluids and recheck in AM Hypertension BP on the lower side stop lisinopril, hydrochlorothiazide Anxiety Use Xanax when necessary Chest pain Atypical For now check troponin Follow-up as outpatient Aspirin for prophylaxis DVT prophylaxis with subcutaneous heparin
[2019-03-20] MEDS: Morphine 2 MG/ML Syringe IVPUSH PRN (19:04)
[2019-03-20] MEDS: atorvaSTATin 10 MG Tab PO SCH (21:06)
[2019-03-20] MEDS: Aspirin 81 MG Tab.EC PO SCH (21:06)
[2019-03-21] MEDS: Piperacillin/Tazobactam 3.375 GM in Sodium Chloride 0.9% 100 ML IV SCH (05:30)
[2019-03-21] MEDS: Ondansetron 4 MG Tab.DIS PO PRN (05:30)
[2019-03-21] MEDS: Heparin Sodium 5,000 Units/ML Vial SUBCUT SCH (05:30)
[2019-03-21] MEDS: ALPRAZolam 0.5 MG Tab PO PRN (05:30)
[2019-03-21] MEDS: Acetaminophen 325 MG Tab PO PRN (05:31)
[2019-03-21 07:02] LABS: ANION GAP 12.8; CHLORIDE,CL 108 mmol/L (101-111); SODIUM,NA 135 mmol/L (135-145)
[2019-03-21] MEDS: Calcium Carbonate 500 MG Tab.Chew PO PRN (09:58)
--- NOTE | 2019-03-21 10:36 | PCM.DCSUM1 ---
Discharge Summary - Hospital Course Free Text/Narrative:: 68-year-old lady presented with abdominal pain CT showed diverticulitis without abscess blood culture:negative Started empirical treatment with Zosyn tolerating diet leukocytosis resolved switch to PO augmentin Hypokalemia Was replaced Hyponatremia improved Hypertension BP on the lower side stop lisinopril, hydrochlorothiazide Anxiety Use Xanax when necessary Chest pain Atypical For now check troponin Follow-up as outpatient Aspirin for prophylaxis Diagnosis: Stroke: No - Discharge Data Discharge Date: 03/21/19 Discharge Disposition: Home, Self-Care 01 Condition: Good - Discharge Diagnosis/Problem(s) (1) Diverticulitis large intestine w/o perforation or abscess w/o bleeding SNOMED Code(s): 0452720 ICD Code: K57.32 - DVTRCLI OF LG INT W/O PERFORATION OR ABSCESS W/O BLEEDING Status: Acute Current Visit: Yes (2) Hyponatremia syndrome SNOMED Code(s): 6339406 ICD Code: E87.1 - HYPO-OSMOLALITY AND HYPONATREMIA Status: Acute Current Visit: Yes - Patient Instructions Diet: Heart Healthy Diet Activity: As Tolerated - Discharge Plan *PRESCRIPTION DRUG MONITORING PROGRAM REVIEWED*: Not Applicable *COPY OF PRESCRIPTION DRUG MONITORING REPORT IN PATIENT [place]: Not Applicable Prescriptions/Med Rec: Amoxicillin/Potassium Clav [Augmentin 500-125 Tablet] 1 each PO TID #21 tablet Home Medications: Home Meds ALPRAZolam [Alprazolam] 0.5 mg PO BID PRN 03/18/19 [History] Aspirin [Halfprin] 81 mg PO BEDTIME 03/18/19 [History] Multivits-Min/Iron/FA/Lutein [Centrum Silver Women Tablet] 1 tab PO DAILY [History] atorvaSTATin [Lipitor] 10 mg PO BEDTIME 03/18/19 [History] Amoxicillin/Potassium Clav [Augmentin 500-125 Tablet] 1 each PO TID #21 tablet 03/21/19 [Rx] Patient Handouts: Loperamide tablets or capsules, Diverticulitis, [id number] , Viral Gastroenteritis, Adult, [id number], Food Choices to Help Relieve Diarrhea, Adult, Low-Fiber Eating Plan, Diarrhea, Adult, [id number] Referrals: Tegan Domínguez NP [Primary Care Provider] - - Discharge Summary/Plan Comment DC Time >30 min.: No - General Info Date of Service: 03/21/19 Subjective Update: sharp pain in the lower abdominal areas have resolved No fever or chills. No further chest pain. No shortness of breath. Functional Status: Reports: Tolerating Diet - Review of Systems General: Denies: Fever, Weakness Pulmonary: Denies: Shortness of Breath Cardiovascular: Denies: Chest Pain Gastrointestinal: Denies: Abdominal Pain Genitourinary: Denies: Dysuria - Patient Data Vitals - Most Recent: Last Vital Signs Temp 36.9 C 03/21/19 07:36 Pulse 72 03/21/19 07:36 Resp 18 03/21/19 07:36 BP 107/46 L 03/21/19 07:36 Pulse Ox 95 03/21/19 07:36 Weight - Most Recent: 57.243 kg I&O - Last 24 hours: Intake & Output 03/20/19 03/21/19 03/21/19 22:59 06:59 14:59 Intake Total 200 1385 200 Output Total 1500 1400 Balance -1300 -15 200 Lab Results - Last 24 hrs: Laboratory Results - last 24 hr 03/21/19 03/21/19 Range/Units 06:20 06:20 WBC 6.1 (5.0-10.0) 10^3/uL RBC 3.60 L (4.2-5.4) 10^6/uL Hgb 10.8 L (12.0-16.0) g/dL Hct 33.1 L (37.0-47.0) % MCV 91.9 (80-100) fL MCH 30.0 (27.0-34.0) pg MCHC 32.6 L (33.0-35.0) g/dL Plt Count 285 (150-450) 10^3/uL Neut % (Auto) 67.5 (42.2-75.2) % Lymph % (Auto) 20.7 (20.5-50.1) % [place] % (Auto) 8.1 H (2-8) % Eos % (Auto) 3.0 (1.0-3.0) % Baso % (Auto) 0.7 (0.0-1.0) % Sodium 135 (135-145) mmol/L Potassium 3.8 (3.6-5.0) mmol/L Chloride 108 (101-111) mmol/L Carbon Dioxide 18.0 L (21.0-31.0) mmol/L Anion Gap 12.8 BUN 7 (7-18) mg/dL Creatinine 0.8 (0.6-1.3) mg/dL Est Cr Clr Drug Dosing 54.13 mL/min Estimated GFR (MDRD) > 60 Glucose 90 (74-105) mg/dL Calcium 8.3 L (8.4-10.2) mg/dl KEISHA Results - Last 24 hrs: Microbiology 03/18/19 18:30 Urine Culture - Preliminary Urine, Clean Catch 03/18/19 21:46 Aerobic Blood Culture - Preliminary Blood - Venous - Lab Draw NO GROWTH AFTER 2 DAYS Anaerobic Blood Culture - Preliminary NO GROWTH AFTER 2 DAYS 03/18/19 21:41 Aerobic Blood Culture - Preliminary Blood - Venous NO GROWTH AFTER 2 DAYS Anaerobic Blood Culture - Preliminary NO GROWTH AFTER 2 DAYS Med Orders - Current: Current Medications Acetaminophen (Tylenol) 650 mg PO Q4H PRN PRN Reason: Pain (Mild 1-3)/fever Last Admin: 03/21/19 05:31 Dose: 650 mg Hydrocodone Bitart/Acetaminophen ([place] 325-10 Mg) 1 tab PO Q4H PRN PRN Reason: Pain (moderate 4-6) Last Admin: 03/19/19 18:08 Dose: 1 tab Alprazolam (Xanax) 0.5 mg PO BID PRN PRN Reason: Anxiety Last Admin: 03/21/19 05:30 Dose: 0.5 mg Aspirin (Halfprin) 81 mg PO BEDTIME MONIKA Last Admin: 03/20/19 21:06 Dose: 81 mg Atorvastatin Calcium (Lipitor) 10 mg PO BEDTIME MONIKA Last Admin: 03/20/19 21:06 Dose: 10 mg Calcium Carbonate/Glycine (Tums) 500 mg PO Q2H PRN PRN Reason: Heartburn Last Admin: 03/21/19 09:58 Dose: 500 mg Diphenhydramine HCl (Benadryl) 25 mg PO BEDTIME PRN PRN Reason: Sleep Last Admin: 03/19/19 20:32 Dose: 25 mg Docusate Sodium (Colace) 100 mg PO BID PRN PRN Reason: Constipation Heparin Sodium (Porcine) (Heparin Sodium) 5,000 units SUBCUT Q8HR MONIKA Last Admin: 03/21/19 05:30 Dose: 5,000 units Piperacillin Sod/Tazobactam (Sod 3.375 gm/ Sodium Chloride) 100 mls @ 200 mls/ hr IV Q6H [facility] Last Admin: 03/21/19 05:30 Dose: 200 mls/hr Potassium Chloride/Sodium Chloride (Normal Saline With 20 Meq Kcl) 1,000 mls @ 75 mls/hr IV ASDIRECTED [facility] Last Admin: 03/20/19 18:58 Dose: 75 mls/hr Loperamide HCl (Imodium) 2 mg PO Q6H PRN PRN Reason: Diarrhea Last Admin: 03/20/19 10:09 Dose: 2 mg Morphine Sulfate (Morphine) 1 mg IVPUSH Q2H PRN PRN Reason: Pain (severe 7-10) Last Admin: 03/20/19 19:04 Dose: 1 mg Ondansetron HCl (Zofran) 4 mg IVPUSH Q6H PRN PRN Reason: Nausea/Vomiting Ondansetron HCl (Zofran Odt) 4 mg PO Q6H PRN PRN Reason: nausea, able to take PO Last Admin: 03/21/19 05:30 Dose: 4 mg Sodium Chloride (Saline Flush) 10 ml FLUSH ASDIRECTED PRN PRN Reason: Keep Vein Open Last Admin: 03/18/19 18:16 Dose: 10 ml Discontinued Medications Hydrochlorothiazide (Hydrochlorothiazide) 12.5 mg PO DAILY [facility] Last Admin: 03/20/19 08:32 Dose: 12.5 mg Hydromorphone HCl (Dilaudid) 1 mg IVPUSH ONETIME ONE Stop: 03/18/19 18:40 Last Admin: 03/18/19 19:16 Dose: 1 mg Piperacillin Sod/Tazobactam (Sod 3.375 gm/ Sodium Chloride) 100 mls @ 200 mls/ hr IV Q6H [facility] Last Admin: 03/18/19 21:57 Dose: 200 mls/hr Iopamidol (Isovue-300 (61%)) 75 ml IVPUSH ONETIME ONE Stop: 03/18/19 18:40 Last Admin: 03/18/19 18:48 Dose: 75 ml Lisinopril (Prinivil) 10 mg PO DAILY [facility] Last Admin: 03/20/19 10:09 Dose: 10 mg Non-Formulary Medication (Alprazolam [Alprazolam Er]) 0.5 mg PO BID PRN PRN Reason: Anxiety Potassium Chloride (Klor-Con 10) 40 meq PO ONETIME ONE Stop: 03/18/19 23:16 Last Admin: 03/18/19 23:45 Dose: 40 meq - Exam General: Reports: Alert, Oriented Neck: Reports: Supple Lungs: Reports: Clear to Auscultation, Normal Respiratory Effort Cardiovascular: Reports: Regular Rate, Regular Rhythm GI/Abdominal Exam: Normal Bowel Sounds, Soft, Non-Tender Skin: Reports: Warm, Dry Neurological: Reports: No New Focal Deficit Psy/Mental Status: Reports: Alert, Normal Affect, Normal Mood
== END 2019-03-21 13:30 | disposition home or self-care (01) | DRG 392 ==
LOC: DL.ED 17:44 → UNDOADMOB 20:03 → INTOOBSV 20:03 → DL.MS 20:03 → OBSVTOIN 20:03 → DL.MS 21:19 → OBSVTOIN 21:19
PROVIDERS: ADMIT Internal Medicine; ATTEND Internal Medicine
DX: K57.32 Diverticulitis of large intestine without perforation or abscess without bleeding (principal); E87.1 Hypo-osmolality and hyponatremia; D72.829 Elevated white blood cell count, unspecified; E87.6 Hypokalemia; Z91.09 Other allergy status, other than to drugs and biological substances; E78.5 Hyperlipidemia, unspecified; Z79.82 Long term (current) use of aspirin; F41.9 Anxiety disorder, unspecified; R07.89 Other chest pain; Z79.899 Other long term (current) drug therapy; I10 Essential (primary) hypertension; Z90.89 Acquired absence of other organs; Z90.710 Acquired absence of both cervix and uterus; Z88.8 Allergy status to other drugs, medicaments and biological substances; E78.00 Pure hypercholesterolemia, unspecified; F32.9 Major depressive disorder, single episode, unspecified
CPT/HCPCS: 36415; 71045; 74177; 80053; 81001; 84484; 85025; 85610; 87086; 87088 ×2; 87186 ×2; 93005; 96374; 99285; J1170; Q9967; 80048; 87040; A9270-GY; J1644; J2270; J2543; J3480; J7050

== ENCOUNTER 2019-10-31 05:44 | Day surgery (SDC) | payer MEDICARE, BC ==
[~2019-10-31 05:44] MED LIST changes: +Dextrose 5%-0.45% NaCl 1,000 ML IV SCH
[2019-10-31] MEDS ORDERED: fentaNYL 100 MCG/2 ML SDV IV ONE ×4 (05:45→06:52)
[2019-10-31] MEDS ORDERED: Midazolam 1 MG/ML 2 ML SDV IV ONE ×9 (05:45→06:51)
[2019-10-31] MEDS ORDERED: Sodium Chloride 0.9% 10 ML Syringe FLUSH PRN (06:00)
[2019-10-31] MEDS ORDERED: Dextrose 5%-0.45% NaCl 1,000 ML IV SCH (06:00)
[2019-10-31] MEDS ORDERED: fentaNYL 100 MCG/2 ML SDV ONE (06:13)
[2019-10-31] MEDS ORDERED: Midazolam 1 MG/ML 2 ML SDV ONE (06:13)
--- NOTE | 2019-10-31 13:13 | OR ---
DATE: 10/31/2019 PROCEDURE: Total colonoscopy. INSTRUMENT USED: PCF-H190DL Olympus video colonoscope. PREMEDICATIONS: Fentanyl 125 mcg intravenous, Versed 5 mg intravenous, nasal O2 cannula. The procedure was done under pulse oximetry, BP recording, and paper grader. INDICATION: Screening colonoscopic examination is done for detection of any polypoid lesions and removal, endoscopic hemostasis therapy if needed. DESCRIPTION OF PROCEDURE: Initial rectal exam was unremarkable. Rigid anoscopy was normal. The colonoscope was passed with ease. Numerous scattered diverticula were noted in the distal left colon along with significant deformity, exam a bit prolonged to pass through the area of deformity. The scope was passed up to the ileocecal area. Photographs were taken of the normal- appearing cecum identified by double-bulged ileocecal folds. No bleeding was noted from any of the visualized areas at the commencement of the examination. Bowel preparation was found to be adequate, [place] scale 2 in all the regions, total score 6. No polyp or tumor mass identified. No evidence of diffuse inflammatory bowel disease in the form of friability, contact bleeding, or ulcerations. Probing the proximal sides of folds and flexures using adequate distention and clearing up the stool material, withdrawal of the scope was made, cecum to rectum time over 6 minutes. No bleeding was noted from any of the visualized areas at the completion of examination. IMPRESSION: Diverticulosis. The patient tolerated the procedure well. [facility] /[id number]
== END 2019-10-31 08:55 | disposition home or self-care (01) ==
LOC: DL.ENDO 05:44
PROVIDERS: ATTEND Internal Medicine Gastroenterology
DX: Z12.11 Encounter for screening for malignant neoplasm of colon (principal); K57.30 Diverticulosis of large intestine without perforation or abscess without bleeding; E78.5 Hyperlipidemia, unspecified; F41.1 Generalized anxiety disorder; F32.9 Major depressive disorder, single episode, unspecified; R73.9 Hyperglycemia, unspecified; H91.90 Unspecified hearing loss, unspecified ear; G47.00 Insomnia, unspecified; G40.909 Epilepsy, unspecified, not intractable, without status epilepticus; M54.5 Low back pain; Z88.8 Allergy status to other drugs, medicaments and biological substances; Z87.19 Personal history of other diseases of the digestive system; Z90.89 Acquired absence of other organs; Z90.710 Acquired absence of both cervix and uterus; Z90.722 Acquired absence of ovaries, bilateral; Z90.79 Acquired absence of other genital organ(s); Z98.890 Other specified postprocedural states
CPT/HCPCS: G0121; J2250; J3010; J7042

== ENCOUNTER 2019-11-14 05:06 | Day surgery (SDC) | payer MEDICARE, BC ==
[2019-11-14] MEDS ORDERED: Midazolam 1 MG/ML 2 ML SDV IV ONE ×3 (05:07→06:33)
[2019-11-14] MEDS ORDERED: fentaNYL 100 MCG/2 ML SDV IV ONE ×3 (05:07→06:32)
[2019-11-14] MEDS ORDERED: Dextrose 5%-0.45% NaCl 1,000 ML IV SCH (06:00)
[2019-11-14] MEDS ORDERED: Midazolam 1 MG/ML 2 ML SDV ONE (06:11)
[2019-11-14] MEDS ORDERED: fentaNYL 100 MCG/2 ML SDV ONE (06:12)
--- NOTE | 2019-11-14 07:06 | OR ---
DATE: 11/14/2019 PROCEDURES: Esophagogastroduodenoscopy and multiple biopsies. INSTRUMENT USED: GIF-HQ190 Olympus video panendoscope. PREMEDICATIONS: Fentanyl 100 mcg intravenous, Versed 2 mg intravenous. The procedure was done under pulse oximetry, BP recording, and tank shop supervisor. INDICATION: The patient with longstanding heartburn, dyspepsia, unexplained and not responsive to medical measures, on long-term PPI. Esophagogastroduodenoscopy is performed for detection of any active erosive lesions, Wang esophagus, and/or malignancy also under consideration, H. pylori status to be determined, endoscopic hemostasis therapy if needed. The scope was passed with ease. Adequate visualization of the esophagus was made from proximal to distal areas. No upper esophageal lesions identified. No distal esophageal stricture. No uphill or downhill esophageal varices. No Liliya-Cutler tear. Grade A erosive changes were noted by [place] criteria. No esophageal polyp or tumor mass identified. Sliding hiatal hernia was noted. No proximal gastric varices noted. Gastric fundus examination by retroflexion showed no polypoid lesions. No gastric ulcer, malignant mass, or vascular ectasia identified. There was some deformity of the pylorus. Duodenal bulb showed no ulcer. Visualized second part of the duodenum was unremarkable. Multiple pinch biopsies were taken from the gastric antrum and proximal body and sent for PyloriTek test for H pylori, and if negative in an hour, the tissue was to be sent for histopathology. No bleeding was noted from any of the visualized areas at the completion of examination. Photographs were taken of the duodenal bulb, gastric antrum, fundus, and distal esophagus. IMPRESSION: 1. Grade A gastroesophageal reflux disease. 2. Sliding hiatal hernia. The patient tolerated the procedure well. [facility] /[id number]
== END 2019-11-14 09:00 | disposition home or self-care (01) ==
LOC: DL.ENDO 05:06
PROVIDERS: ATTEND Internal Medicine Gastroenterology
DX: K21.9 Gastro-esophageal reflux disease without esophagitis (principal); K44.9 Diaphragmatic hernia without obstruction or gangrene; E78.5 Hyperlipidemia, unspecified; Z88.8 Allergy status to other drugs, medicaments and biological substances; Z87.19 Personal history of other diseases of the digestive system
CPT/HCPCS: 43239; 87077; J2250; J3010; J7042; 88305

== ENCOUNTER 2019-12-03 17:35 | Emergency (ER) | payer MEDICARE, BC ==
[2019-12-03] MEDS ORDERED: Sodium Chloride 0.9% 1,000 ML IV ONE (18:02)
[2019-12-03 18:18] LABS: ANION GAP 12.9; CHLORIDE,CL 96 mmol/L (101-111); SODIUM,NA 131 mmol/L (135-145)
[2019-12-03] MEDS ORDERED: fentaNYL 100 MCG/2 ML SDV IVPUSH ONE (18:19)
[2019-12-03] MEDS ORDERED: Ondansetron 4 MG/2 ML SDV IVPUSH ONE (18:20)
[2019-12-03] MEDS ORDERED: Iopamidol 612 MG/ML 100 ML Bottle IVPUSH ONE (18:34)
--- NOTE | 2019-12-03 18:56 | EDM.PDOC ---
Scribed by Tori Espinoza 12/03/19 [id number] for Maria M Gaytan NP ED HPI GENERAL MEDICAL PROBLEM - General Chief Complaint: Gastrointestinal Problem Stated Complaint: DIVERTICULITIS, PER PT Time Seen by Provider: 12/03/19 17:59 Source of Information: Reports: Patient, RN, RN Notes Reviewed History Limitations: Reports: No Limitations - History of Present Illness INITIAL COMMENTS - FREE TEXT/NARRATIVE: Patient presents to ER with complaint of lower abdominal pain x2 days. She had the urge to have a bowel movement but only small results with blood tinged neelam stool and mucus. She has chills and back pain. History of diverticula in February. No nausea, vomiting or urinary symptoms. She had recent upper and lower GI studies but doesn't know the results. Onset: Gradual Duration: Getting Worse Location: Reports: Abdomen Quality: Reports: Ache Severity: Moderate Improves with: Reports: None Worsens with: Reports: None Associated Symptoms: Reports: No Other Symptoms Bilateral Lower Abdomen Pain Score (Numeric/FACES): 10 - Related Data Allergies Allergy/AdvReac Type Severity Reaction Status Date / Time prochlorperazine edisylate Allergy Delusions Verified 12/03/19 17:44 [From Compazine] Home Meds: Home Meds ALPRAZolam [Alprazolam] 0.5 mg PO BEDTIME PRN 03/18/19 [History] Multivit-Min/Iron/Folic/Lutein [Centrum Silver Women Tablet] 1 tab PO DAILY [History] atorvaSTATin [Lipitor] 10 mg PO BEDTIME 03/18/19 [History] Cholecalciferol (Vitamin D3) [Vitamin D] 5,000 units PO DAILY 10/20/19 [History] Lisinopril/Hydrochlorothiazide [Lisinopril-HCTZ 10-12.5 MG] 10 - 12.5 mg PO DAILY 10/20/19 [History] Psyllium Husk [Psyllium Fiber] 1 tab PO DAILY 10/20/19 [History] Omeprazole Magnesium [Prilosec] 20 mg PO ACBREAKFAST 11/14/19 [History] QUEtiapine [SEROquel] 50 mg PO BEDTIME 11/14/19 [History] Past Medical History HEENT History: Reports: Cataract, Impaired Vision Other HEENT History: WEARS GLASSES. 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 HX OF CORTISONE INJECTIONS Neurological History: Reports: Seizure, Other (See Below) Other Neuro History: SEIZURE "MANY YEARS AGO" Psychiatric History: Reports: Anxiety, Depression Endocrine/Metabolic History: Reports: Other (See Below) Other Endocrine/Metabolic History: ELEVATED FASTING GLUCOSE Hematologic History: Reports: None Immunologic History: Reports: None Oncologic (Cancer) History: Reports: Cervix Dermatologic History: Reports: None - Infectious Disease History Infectious Disease History: Reports: None - Past Surgical History Head Surgeries/Procedures: Reports: None HEENT Surgical History: Reports: Adenoidectomy, Tonsillectomy Cardiovascular Surgical History: Reports: None GI Surgical History: Reports: Appendectomy, Colonoscopy, EGD Female Surgical History: Reports: Hysterectomy, Salpingo-Oophorectomy Endocrine Surgical History: Reports: None Neurological Surgical History: Reports: None Musculoskeletal Surgical History: Reports: Shoulder Surgery Other Musculoskeletal Surgeries/Procedures:: RIGHT ROTATOR CUFF SURGERY COUPLE YEARS AGO Oncologic Surgical History: Reports: Other (See Below) Other Oncologic Surgeries/Procedures: Hysterectomy Social & Family History - Family History Family Medical History: Noncontributory - Tobacco Use Smoking Status *Q: Never Smoker Second Hand Smoke Exposure: No - Caffeine Use Caffeine Use: Reports: None - Recreational Drug Use Recreational Drug Use: No - Living Situation & Occupation Living situation: Reports: , with Family Occupation: Retired ED ROS GENERAL - Review of Systems Review Of Systems: Comprehensive ROS is negative, except as noted in HPI. ED EXAM, GI/ABD - Physical Exam Exam: See Below Exam Limited By: No Limitations General Appearance: Alert, WD/WN, No Apparent Distress Eyes: Bilateral: Normal Appearance Ears: Normal External Exam, Normal Canal, Hearing Grossly Normal, Normal TMs Nose: Normal Inspection, Normal Mucosa, No Blood Throat/Mouth: Normal Inspection, Normal Lips, Normal Teeth, Normal Gums, Normal Oropharynx, Normal Voice, No Airway Compromise Head: Atraumatic, Normocephalic Neck: Normal Inspection, Supple, Non-Tender, Full Range of Motion Respiratory/Chest: Lungs Clear Cardiovascular: Regular Rate, Rhythm GI/Abdominal Exam: Soft, Other (tender left greater than right. Bowel sounds x4 hyper right. ) (Female) Exam: Deferred Rectal (Female) Exam: Deferred Back Exam: No: CVA Tenderness (L), CVA Tenderness (R) Extremities: Normal Inspection, Normal Range of Motion, Non-Tender, Normal Capillary Refill, No Pedal Edema Neurological: Alert, Oriented, CN II-XII Intact, Normal Cognition, Normal Gait, Normal Reflexes, No Motor/Sensory Deficits Psychiatric: Normal Affect, Normal Mood Skin Exam: Other (pale) Course - Vital Signs Last Recorded V/S: Last Vital Signs Temp 98.4 F 12/03/19 17:44 Pulse 90 12/03/19 17:44 Resp 16 12/03/19 17:44 BP 138/71 12/03/19 17:44 Pulse Ox 100 12/03/19 17:44 - Orders/Labs/Meds Orders: Active Orders 24 hr Category Date Time Status CULTURE BLOOD [BC] Stat Lab 12/03/19 17:55 Received Ciprofloxacin [Ciprofloxacin HCl] Med 12/03/19 19:14 Once 750 mg PO ONETIME ONE Sodium Chloride 0.9% [Normal Saline] 1,000 ml Med 12/03/19 18:02 Active IV ONETIME metroNIDAZOLE Med 12/03/19 19:18 Once 500 mg PO ONETIME ONE Medication Orders Sodium Chloride (Normal Saline) 1,000 mls @ 200 mls/hr IV ONETIME ONE Stop: 12/03/19 23:01 Last Admin: 12/03/19 18:08 Dose: 200 mls/hr Labs: Laboratory Tests 12/03/19 12/03/19 12/03/19 Range/Units 17:55 17:55 17:55 WBC 14.8 H (5.0-10.0) 10^3/uL RBC 4.46 (4.2-5.4) 10^6/uL Hgb 13.4 D (12.0-16.0) g/dL Hct 40.2 (37.0-47.0) % MCV 90.1 (80-100) fL MCH 30.0 (27.0-34.0) pg MCHC 33.3 (33.0-35.0) g/dL Plt Count 380 D (150-450) 10^3/uL Neut % (Auto) 81.8 H (42.2-75.2) % Lymph % (Auto) 9.7 L (20.5-50.1) % [place] % (Auto) 7.8 (2-8) % Eos % (Auto) 0.5 L (1.0-3.0) % Baso % (Auto) 0.2 (0.0-1.0) % Sodium 131 L (135-145) mmol/L Potassium 3.9 (3.6-5.0) mmol/L Chloride 96 L D (101-111) mmol/L Carbon Dioxide 26.0 (21.0-31.0) mmol/L Anion Gap 12.9 BUN 15 (7-18) mg/dL Creatinine 0.9 (0.6-1.3) mg/dL Est Cr Clr Drug Dosing 45.34 mL/min Estimated GFR (MDRD) > 60 BUN/Creatinine Ratio 16.66 Glucose 105 (74-105) mg/dL Lactic Acid 0.7 (0.5-2.0) mmol/L Calcium 9.6 (8.4-10.2) mg/dl Total Bilirubin 0.7 (0.2-1.0) mg/dL AST 23 (10-42) IU/L ALT 28 (10-60) IU/L Alkaline Phosphatase 84 (42-121) IU/L Total Protein 7.9 (6.7-8.2) g/dl Albumin 4.4 (3.2-5.5) g/dl Globulin 3.5 Albumin/Globulin Ratio 1.26 Amylase 90 (28-100) U/L Lipase 34 (22-51) U/L Meds: Medications Generic Name Dose Route Start Last Admin Trade Name Freq PRN Reason Stop Dose Admin Sodium Chloride 1,000 mls @ 200 mls/hr 12/03/19 18:02 12/03/19 18:08 Normal Saline IV 12/03/19 23:01 200 mls/hr ONETIME ONE Administration Discontinued Medications Generic Name Dose Route Start Last Admin Trade Name Freq PRN Reason Stop Dose Admin Fentanyl 25 mcg 12/03/19 18:19 12/03/19 18:31 Sublimaze IVPUSH 12/03/19 18:20 25 mcg ONETIME ONE Administration Iopamidol 100 ml 12/03/19 18:34 12/03/19 18:41 Isovue-300 (61%) IVPUSH 12/03/19 18:35 100 ml ONETIME ONE Administration Ondansetron HCl 4 mg 12/03/19 18:20 12/03/19 18:32 Zofran IVPUSH 12/03/19 18:21 4 mg ONETIME ONE Administration - Radiology Interpretation Free Text/Narrative:: CT abdomen/Pelvis with contrast: FINDINGS: Lungs: The visualized portions of the lung bases are normal. Mediastinum: There is a small hiatal hernia. Liver: An 8 mm simple cyst lies in the liver. The remainder of the liver parenchyma is normal. Gallbladder and bile ducts: The gallbladder is normal. Pancreas: The pancreas is normal. Spleen: The spleen is normal. Adrenals: The adrenal glands are normal. Kidneys and ureters: The kidneys are morphologically normal. There are no signs of calculi or hydronephrosis. Stomach and bowel: The upstream sigmoid colon has colonic wall thickening and mesenteric induration consistent with moderate acute colitis/diverticulitis. As an underlying colonic malignancy cannot be excluded, a follow-up examination after a course of treatment is recommended if clinically warranted. The remainder of the GI tract has normal course, caliber, and morphology. Appendix: Not visible. Intraperitoneal space: There is no evidence of free intraperitoneal or pelvic fluid. Vasculature: There is mild atherosclerotic calcifications of the abdominal aorta and its branches, no sign of occlusion or aneurysm. Lymph nodes: There is no evidence of lymphadenopathy. Bladder: The bladder is normal. Reproductive: There has been a hysterectomy. Bones/joints: The pelvis and sacrum are morphologically normal and anatomically aligned. The lumbar spine demonstrates moderate degenerative changes at multiple levels. Soft tissues: Unremarkable. Other findings: There is minimal, contained micro perforation and no signs of abscess. There is no evidence of pathologic air collections. . IMPRESSION: Moderate upstream sigmoid diverticulitis with minimal local micro perforation no sign of abscess or free air. Thank you for allowing us to participate in the care of your patient. Dictated and Authenticated by: Angelito Vega MD 12/03/2019 7:11 PM Central Time ([place] & [place]) See rad report Departure - Departure Time of Disposition: 19:20 Disposition: Home, Self-Care 01 Condition: Fair Clinical Impression: Diverticulitis - Discharge Information *PRESCRIPTION DRUG MONITORING PROGRAM REVIEWED*: No *COPY OF PRESCRIPTION DRUG MONITORING REPORT IN PATIENT PEYMAN: No Instructions: Diverticulitis, [id number] Forms: ED Department Discharge Additional Instructions: RX: Metronidazole, Cipro Drink plenty of water Follow up with your primary care facility next week Sepsis Event Note - Evaluation Sepsis Screening Result: No Definite Risk - Focused Exam Vital Signs: Vital Signs Temp Pulse Resp BP Pulse Ox 12/03/19 17:44 98.4 F 90 16 138/71 100 Date Exam was Performed: 12/03/19 Time Exam was Performed: 19:18 - My Orders Last 24 Hours: My Active Orders 12/03/19 19:14 Ciprofloxacin [Ciprofloxacin HCl] 750 mg PO ONETIME ONE 12/03/19 19:18 metroNIDAZOLE 500 mg PO ONETIME ONE - Assessment/Plan Last 24 Hours: My Active Orders 12/03/19 19:14 Ciprofloxacin [Ciprofloxacin HCl] 750 mg PO ONETIME ONE 12/03/19 19:18 metroNIDAZOLE 500 mg PO ONETIME ONE I have read and agree with the documentation that has been completed regarding this visit. By signing this record, I attest that the documentation was completed in my physical presence and is an accurate record of the encounter.
[2019-12-03] MEDS ORDERED: Ciprofloxacin 500 MG Tab PO ONE (19:14)
[2019-12-03] MEDS ORDERED: metroNIDAZOLE 250 MG Tab PO ONE (19:18)
[2019-12-03] MEDS ORDERED: HYDROmorphone 0.5 MG/0.5 ML Syringe IVPUSH ONE (19:25)
== END 2019-12-03 20:00 | disposition home or self-care (01) ==
LOC: DL.ED 17:35
DX: K57.32 Diverticulitis of large intestine without perforation or abscess without bleeding (principal); E78.00 Pure hypercholesterolemia, unspecified; I10 Essential (primary) hypertension; F41.9 Anxiety disorder, unspecified; F32.9 Major depressive disorder, single episode, unspecified; Z88.8 Allergy status to other drugs, medicaments and biological substances; Z79.899 Other long term (current) drug therapy
CPT/HCPCS: 36415; 74177; 80053; 82150; 83605; 83690; 85025; 87040; 96361; 96374; 96375; 99283; 99284; A9270; J1170; J2405; J3010; J7030; Q9967

== ENCOUNTER 2019-12-06 19:48 | Emergency (ER) | payer MEDICARE, BC ==
[2019-12-06] MEDS ORDERED: Ondansetron 4 MG Tab.DIS PO ONE (19:49)
[2019-12-06] MEDS ORDERED: Ondansetron 4 MG/2 ML SDV IVPUSH ONE (20:50)
--- NOTE | 2019-12-06 20:57 | EDM.PDOC ---
ED HPI GENERAL MEDICAL PROBLEM - General Chief Complaint: Abdominal Pain Stated Complaint: DIVERTICULITIS FLARE, COUGHING Time Seen by Provider: 12/06/19 20:45 Source of Information: Reports: Patient History Limitations: Reports: No Limitations - History of Present Illness INITIAL COMMENTS - FREE TEXT/NARRATIVE: This 69 yo female patient reports to the ED due to lower abdominal pain with nausea/vomiting and diarrhea. The patient reports she was seen in the ED on Thursday for similar symptoms. The patient was diagnosed with diverticulitis. The patient saw Dr. Vyas on Thursday and was advised that she needs to be referred to [facility] in [place] to see a surgeon. The patient does not know why she was supposed to see the surgeon in [place]. The patient reports she was started on antibiotics on Thursday and has been taking the antibiotics as prescribed. Onset: Today Duration: Constant Location: Reports: Abdomen (lower abdomen) Quality: Reports: Ache, Sharp Severity: Moderate Improves with: Reports: None Worsens with: Reports: None Context: Reports: Other Associated Symptoms: Reports: Nausea/Vomiting Bilateral Lower Abdomen Pain Score (Numeric/FACES): 8 - Related Data Allergies Allergy/AdvReac Type Severity Reaction Status Date / Time prochlorperazine edisylate Allergy Delusions Verified 12/03/19 17:44 [From Compazine] Home Meds: Home Meds ALPRAZolam [Alprazolam] 0.5 mg PO BEDTIME PRN 03/18/19 [History] Multivit-Min/Iron/Folic/Lutein [Centrum Silver Women Tablet] 1 tab PO DAILY [History] atorvaSTATin [Lipitor] 10 mg PO BEDTIME 03/18/19 [History] Cholecalciferol (Vitamin D3) [Vitamin D] 5,000 units PO DAILY 10/20/19 [History] Lisinopril/Hydrochlorothiazide [Lisinopril-HCTZ 10-12.5 MG] 10 - 12.5 mg PO DAILY 10/20/19 [History] Psyllium Husk [Psyllium Fiber] 1 tab PO DAILY 10/20/19 [History] Omeprazole Magnesium [Prilosec] 20 mg PO ACBREAKFAST 11/14/19 [History] QUEtiapine [SEROquel] 50 mg PO BEDTIME 11/14/19 [History] Past Medical History HEENT History: Reports: Cataract, Impaired Vision Other HEENT History: WEARS GLASSES. 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 HX OF CORTISONE INJECTIONS Neurological History: Reports: Seizure, Other (See Below) Other Neuro History: SEIZURE "MANY YEARS AGO" Psychiatric History: Reports: Anxiety, Depression Endocrine/Metabolic History: Reports: Other (See Below) Other Endocrine/Metabolic History: ELEVATED FASTING GLUCOSE Hematologic History: Reports: None Immunologic History: Reports: None Oncologic (Cancer) History: Reports: Cervix Dermatologic History: Reports: None - Infectious Disease History Infectious Disease History: Reports: None - Past Surgical History Head Surgeries/Procedures: Reports: None HEENT Surgical History: Reports: Adenoidectomy, Tonsillectomy Cardiovascular Surgical History: Reports: None GI Surgical History: Reports: Appendectomy, Colonoscopy, EGD Female Surgical History: Reports: Hysterectomy, Salpingo-Oophorectomy Endocrine Surgical History: Reports: None Neurological Surgical History: Reports: None Musculoskeletal Surgical History: Reports: Shoulder Surgery Other Musculoskeletal Surgeries/Procedures:: RIGHT ROTATOR CUFF SURGERY COUPLE YEARS AGO Oncologic Surgical History: Reports: Other (See Below) Other Oncologic Surgeries/Procedures: Hysterectomy Social & Family History - Family History Family Medical History: Noncontributory - Tobacco Use Smoking Status *Q: Never Smoker Second Hand Smoke Exposure: No - Caffeine Use Caffeine Use: Reports: None - Recreational Drug Use Recreational Drug Use: No - Living Situation & Occupation Living situation: Reports: , with Family Occupation: Retired ED ROS GENERAL - Review of Systems Review Of Systems: Comprehensive ROS is negative, except as noted in HPI. ED EXAM, GI/ABD - Physical Exam Exam: See Below Exam Limited By: No Limitations General Appearance: Alert, WD/WN, Moderate Distress Eyes: Bilateral: Normal Appearance, EOMI Ears: Normal External Exam, Normal Canal, Hearing Grossly Normal, Normal TMs Nose: Normal Inspection, Normal Mucosa, No Blood Throat/Mouth: Normal Inspection, Normal Lips, Normal Teeth, Normal Gums, Normal Oropharynx, Normal Voice, No Airway Compromise Head: Atraumatic, Normocephalic Neck: Normal Inspection, Supple, Non-Tender, Full Range of Motion Respiratory/Chest: No Respiratory Distress, Lungs Clear, Normal Breath Sounds, No Accessory Muscle Use, Chest Non-Tender Cardiovascular: Normal Peripheral Pulses, Regular Rate, Rhythm, No Edema, No Gallop, No JVD, No Murmur, No Rub (Female) Exam: Deferred Rectal (Female) Exam: Deferred Back Exam: Normal Inspection, Full Range of Motion, NT Extremities: Normal Inspection, Normal Range of Motion, Non-Tender, Normal Capillary Refill, No Pedal Edema Neurological: Alert, Oriented, CN II-XII Intact, Normal Cognition, Normal Gait, Normal Reflexes, No Motor/Sensory Deficits Psychiatric: Normal Affect, Normal Mood Skin Exam: Warm, Dry, Intact, Normal Color, No Rash Lymphatic: No Adenopathy Course - Vital Signs Last Recorded V/S: Last Vital Signs Temp 36.6 C 12/06/19 20:08 Pulse 84 12/06/19 20:08 Resp 18 12/06/19 20:08 BP 142/82 H 12/06/19 20:08 Pulse Ox 98 12/06/19 20:08 - Orders/Labs/Meds Orders: Active Orders 24 hr Category Date Time Status Abdomen Pelvis w Cont [CT] Urgent Exams 12/06/19 21:51 Ordered CULTURE BLOOD [BC] Stat Lab 12/06/19 20:45 Received Labs: Laboratory Tests 12/06/19 12/06/19 12/06/19 Range/Units 20:45 20:45 20:45 WBC 7.1 (5.0-10.0) 10^3/uL RBC 3.92 L (4.2-5.4) 10^6/uL Hgb 11.8 L D (12.0-16.0) g/dL Hct 34.4 L (37.0-47.0) % MCV 87.8 (80-100) fL MCH 30.1 (27.0-34.0) pg MCHC 34.3 (33.0-35.0) g/dL Plt Count 393 (150-450) 10^3/uL Neut % (Auto) 74.5 (42.2-75.2) % Lymph % (Auto) 16.8 L (20.5-50.1) % Beaver % (Auto) 7.3 (2-8) % Eos % (Auto) 1.0 (1.0-3.0) % Baso % (Auto) 0.4 (0.0-1.0) % Sodium 129 L (136-145) mmol/L Potassium 4.0 (3.5-5.1) mmol/L Chloride 93 L (101-111) mmol/L Carbon Dioxide 22 (21-32) mmol/L Anion Gap 18.0 H (7-13) mEq/L BUN 14 (7-18) mg/dL Creatinine 1.00 (0.55-1.02) mg/dL Est Cr Clr Drug Dosing 40.81 mL/min Estimated GFR (MDRD) 55 BUN/Creatinine Ratio 14.0 (No establ ref range) Glucose 95 (74-99) mg/dL Lactic Acid 1.3 (0.4-2.0) mmol/L Calcium 8.6 (8.5-10.1) mg/dL Total Bilirubin 0.5 (0.2-1.0) mg/dL AST 25 (15-37) U/L ALT 31 (14-59) U/L Alkaline Phosphatase 81 (46-116) U/L Total Protein 7.3 (6.4-8.2) g/dL Albumin 3.7 (3.4-5.0) g/dL Globulin 3.6 Albumin/Globulin Ratio 1.0 Amylase 75 (25-115) U/L Lipase 111 (73-393) U/L Meds: Medications Discontinued Medications Generic Name Dose Route Start Last Admin Trade Name Freq PRN Reason Stop Dose Admin Sodium Chloride 1,000 mls @ 999 mls/hr 12/06/19 21:49 12/06/19 21:52 Normal Saline IV 12/06/19 22:49 999 mls/hr .BOLUS ONE Administration Iopamidol 100 ml 12/06/19 21:51 12/06/19 22:28 Isovue-300 (61%) IVPUSH 12/06/19 21:52 75 ml ONETIME ONE Administration Ondansetron HCl 4 mg 12/06/19 20:50 12/06/19 20:53 Zofran IVPUSH 12/06/19 20:51 4 mg ONETIME ONE Administration - Radiology Interpretation Free Text/Narrative:: PROCEDURE INFORMATION: Exam: CT Abdomen And Pelvis With Contrast Exam date and time: 12/06/2019 10:12 PM Age: 69 years old Clinical indication: Patient HX: Lower abdominal pain history of diverticulitus TECHNIQUE: Imaging protocol: Computed tomography of the abdomen and pelvis with intravenous contrast. Radiation optimization: All CT scans at this facility use at least one of these dose optimization techniques: automated exposure control; mA and/or kV adjustment per patient size (includes targeted exams where dose is matched to clinical indication); or iterative reconstruction. Contrast material: [id number]; Contrast volume: 75 ml; Contrast route: IV; COMPARISON: CT Abdomen Pelvis w Cont 12/03/2019 6:43 PM FINDINGS: Mediastinum: Small hiatal hernia. Liver: Subcentimeter left hepatic low-attenuation focus suggesting a small cyst.. No mass. Gallbladder and bile ducts: Normal. No calcified stones. No ductal dilation. Pancreas: Normal. No ductal dilation. Spleen: Normal. No splenomegaly. Adrenals: Normal. No mass. Kidneys and ureters: Right renal atrophy.. No hydronephrosis. Stomach and bowel: Features of sigmoid diverticulitis again noted. There is some fluid surrounding the sigmoid colon. The degree of edema has slightly regressed since 12/03/2019. This suggests that the patient may be responding to antibiotic treatment. Recommend clinical correlation. There is no mechanical bowel obstruction. Small hiatal hernia. Appendix: No evidence of appendicitis. FRED LI | Final Radiology Report CONFIDENTIALITY STATEMENT This report is intended only for use by the referring physician, and only in accordance with law. If you received this in error, call [phone]. Page 2 of 2 Intraperitoneal space: No free air within the abdomen. No flip free fluid. Vasculature: Unremarkable. No abdominal aortic aneurysm. Lymph nodes: Unremarkable. No enlarged lymph nodes. Bladder: Unremarkable as visualized. Reproductive: Previous hysterectomy. Bones/joints: Degenerative lumbar spine disease. Soft tissues: Unremarkable. IMPRESSION: 1. Features suggest improving sigmoid diverticulitis in comparison with prior study 12/03/2019. No evidence of interval perforation. No abscess. No obstruction. 2. Right renal atrophy. 3. Small hiatal hernia. Thank you for allowing us to participate in the care of your patient. Dictated and Authenticated by: Paulino Chi MD 12/06/2019 11:00 PM Central Time ([place] & [place]) Departure - Departure Time of Disposition: 23:07 Disposition: Home, Self-Care 01 Condition: Fair Clinical Impression: Diverticulitis large intestine w/o perforation or abscess w/o bleeding Vomiting Qualifiers: Vomiting type: unspecified Vomiting Intractability: intractable Nausea presence : with nausea Qualified Code(s): R11.2 - Nausea with vomiting, unspecified - Discharge Information *PRESCRIPTION DRUG MONITORING PROGRAM REVIEWED*: Not Applicable *COPY OF PRESCRIPTION DRUG MONITORING REPORT IN PATIENT [place]: Not Applicable Instructions: Nausea and Vomiting, Adult, [id number] Forms: ED Department Discharge Care Plan Goals: The patient was advised of the examination, lab and CT results during the visit. The patient was given a liter of IV fluid and IV Zofran while in the ED. The patient was encouraged to continue to take the antibiotics as previously prescribed. The patient was discharged with Zofran ODT (4 mg) #2 to take 1 by mouth every 6 hours as needed and a script for Zofran (4 mg) #20 to take 1 by mouth every 6 hours as needed for nausea. The patient should continue on her clear fluid diet. If the patient has any additional symptoms or concerns, the patient was encouraged to either visit her primary care facility or return to the emergency department. Sepsis Event Note - Evaluation Sepsis Screening Result: No Definite Risk - Focused Exam Vital Signs: Vital Signs Temp Pulse Resp BP Pulse Ox 12/06/19 20:08 36.6 C 84 18 142/82 H 98 Date Exam was Performed: 12/06/19 Time Exam was Performed: 23:07 - My Orders Last 24 Hours: My Active Orders 12/06/19 20:45 CULTURE BLOOD [BC] Stat 12/06/19 21:51 Abdomen Pelvis w Cont [CT] Urgent - Assessment/Plan Last 24 Hours: My Active Orders 12/06/19 20:45 CULTURE BLOOD [BC] Stat 12/06/19 21:51 Abdomen Pelvis w Cont [CT] Urgent
[2019-12-06] MEDS ORDERED: Sodium Chloride 0.9% 1,000 ML IV ONE (21:49)
[2019-12-06] MEDS ORDERED: Iopamidol 612 MG/ML 100 ML Bottle IVPUSH ONE (21:51)
[2019-12-06] MEDS ORDERED: Ondansetron 4 MG Tab.DIS ONE (23:11)
== END 2019-12-06 23:14 | disposition home or self-care (01) ==
LOC: DL.ED 19:48
DX: K57.32 Diverticulitis of large intestine without perforation or abscess without bleeding (principal); I10 Essential (primary) hypertension; E78.00 Pure hypercholesterolemia, unspecified; F41.9 Anxiety disorder, unspecified; F32.9 Major depressive disorder, single episode, unspecified; Z90.49 Acquired absence of other specified parts of digestive tract; Z88.8 Allergy status to other drugs, medicaments and biological substances; Z79.899 Other long term (current) drug therapy
CPT/HCPCS: 36415; 74177; 80053; 82150; 83605; 83690; 85025; 87040; 96361; 96374; 99284-25; A9270-GY; J2405; J7030; Q9967

== ENCOUNTER 2019-12-16 15:38 | Observation (INO) | payer MEDICARE, BC ==
--- NOTE | 2019-12-16 16:29 | EDM.PDOC ---
ED HPI GENERAL MEDICAL PROBLEM - General Chief Complaint: Abdominal Pain Stated Complaint: CRITICAL LABS Time Seen by Provider: 12/16/19 16:05 Source of Information: Reports: Patient, RN, RN Notes Reviewed History Limitations: Reports: No Limitations - History of Present Illness INITIAL COMMENTS - FREE TEXT/NARRATIVE: Patient presents to ER from [facility] with complaint of low sodium. Patient reports she was treated for diverticulitis on December 05 and has been on liquid diet ever since. Patient reports tremors and headaches on a daily basis. At the clinic her lab results revealed a sodium of 117 and a lipase of 550. Patient denies any discomfort at this time. She denies fevers, chills, shortness of breath, chest pain, palpitations, or swollen legs. Denies any urinary problems. Denies dizziness, lightheadedness, or history of seizures. Onset: Gradual Location: Reports: Abdomen Severity: Moderate - Related Data Allergies Allergy/AdvReac Type Severity Reaction Status Date / Time prochlorperazine edisylate Allergy Delusions Verified 12/16/19 16:04 [From Compazine] Home Meds: Home Meds ALPRAZolam [Alprazolam] 0.5 mg PO BID PRN 03/18/19 [History] Multivit-Min/Iron/Folic/Lutein [Centrum Silver Women Tablet] 1 tab PO DAILY [History] atorvaSTATin [Lipitor] 10 mg PO BEDTIME 03/18/19 [History] Cholecalciferol (Vitamin D3) [Vitamin D] 1 tab PO DAILY 10/20/19 [History] Lisinopril/Hydrochlorothiazide [Lisinopril-HCTZ 10-12.5 MG] 1 tab PO DAILY 10/20 [History] Psyllium Husk [Psyllium Fiber] 1 tab PO DAILY 10/20/19 [History] Omeprazole Magnesium [Prilosec] 20 mg PO BID 11/14/19 [History] QUEtiapine [SEROquel] 50 mg PO BEDTIME 11/14/19 [History] Acetaminophen [Tylenol Extra Strength] 500 mg PO Q4HR PRN 12/16/19 [History] Amoxicillin/Potassium Clav [Amox-Clav 875-125 mg Tablet] 1 tab PO BID 12/16/19 [ History] Ondansetron [Zofran] 4 mg PO Q6H PRN 12/16/19 [History] Past Medical History HEENT History: Reports: Cataract, Impaired Vision Other HEENT History: WEARS GLASSES. 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 HX OF CORTISONE INJECTIONS Neurological History: Reports: Seizure, Other (See Below) Other Neuro History: SEIZURE "MANY YEARS AGO" Psychiatric History: Reports: Anxiety, Depression Endocrine/Metabolic History: Reports: Other (See Below) Other Endocrine/Metabolic History: ELEVATED FASTING GLUCOSE Hematologic History: Reports: None Immunologic History: Reports: None Oncologic (Cancer) History: Reports: Cervix Dermatologic History: Reports: None - Infectious Disease History Infectious Disease History: Reports: None - Past Surgical History Head Surgeries/Procedures: Reports: None HEENT Surgical History: Reports: Adenoidectomy, Tonsillectomy Cardiovascular Surgical History: Reports: None GI Surgical History: Reports: Appendectomy, Colonoscopy, EGD Female Surgical History: Reports: Hysterectomy, Salpingo-Oophorectomy Endocrine Surgical History: Reports: None Neurological Surgical History: Reports: None Musculoskeletal Surgical History: Reports: Shoulder Surgery Other Musculoskeletal Surgeries/Procedures:: RIGHT ROTATOR CUFF SURGERY COUPLE YEARS AGO Oncologic Surgical History: Reports: Other (See Below) Other Oncologic Surgeries/Procedures: Hysterectomy Social & Family History - Family History Family Medical History: Noncontributory - Tobacco Use Smoking Status *Q: Never Smoker - Caffeine Use Caffeine Use: Reports: Coffee - Recreational Drug Use Recreational Drug Use: No - Living Situation & Occupation Living situation: Reports: , with Family Occupation: Retired ED ROS GENERAL - Review of Systems Review Of Systems: Comprehensive ROS is negative, except as noted in HPI. ED EXAM, GI/ABD - Physical Exam Exam: See Below Exam Limited By: No Limitations General Appearance: Alert, WD/WN, No Apparent Distress Eyes: Bilateral: Normal Appearance Ears: Normal External Exam, Normal Canal, Hearing Grossly Normal, Normal TMs Nose: Normal Inspection, Normal Mucosa, No Blood Throat/Mouth: Normal Inspection, Normal Lips, Normal Teeth, Normal Gums, Normal Oropharynx, Normal Voice, No Airway Compromise Head: Atraumatic, Normocephalic Neck: Normal Inspection, Supple, Non-Tender, Full Range of Motion Respiratory/Chest: No Respiratory Distress, Lungs Clear, Normal Breath Sounds, No Accessory Muscle Use, Chest Non-Tender Cardiovascular: Normal Peripheral Pulses, Regular Rate, Rhythm, No Edema, No Gallop, No JVD, No Murmur, No Rub GI/Abdominal Exam: Normal Bowel Sounds, Soft, Non-Tender, No Organomegaly, No Distention, No Abnormal Bruit, No Mass, Pelvis Stable (Female) Exam: Deferred Rectal (Female) Exam: Deferred Back Exam: Normal Inspection Extremities: Normal Inspection, Non-Tender, No Pedal Edema, Normal Capillary Refill Neurological: Alert, Oriented, CN II-XII Intact, Other (mild hand tremors noted. ) Psychiatric: Normal Affect, Normal Mood Skin Exam: Warm, Dry, Intact, Normal Color, No Rash Lymphatic: No Adenopathy Course - Vital Signs Last Recorded V/S: Last Vital Signs Temp 96.8 F L 12/16/19 15:56 Pulse 78 12/16/19 15:56 Resp 18 12/16/19 15:56 BP 123/63 12/16/19 15:56 Pulse Ox 100 12/16/19 15:56 - Re-Assessments/Exams Free Text/Narrative Re-Assessment/Exam: Called Dr. Rivera with patient results and he accepted the patient for admission. Patient in agreement. Departure - Departure Time of Disposition: 16:30 Disposition: Admitted As Inpatient 64 Condition: Fair Clinical Impression: Hyponatremia syndrome - Discharge Information Sepsis Event Note - Evaluation Sepsis Screening Result: No Definite Risk - Focused Exam Vital Signs: Vital Signs Temp Pulse Resp BP Pulse Ox 12/16/19 15:56 96.8 F L 78 18 123/63 100 Date Exam was Performed: 12/16/19 Time Exam was Performed: 16:24
[2019-12-16] MEDS ORDERED: Ondansetron 4 MG Tab.DIS PO PRN ×2 (17:07→17:26)
[2019-12-16] MEDS ORDERED: Acetaminophen 500 MG Tab PO PRN (17:07)
[2019-12-16] MEDS ORDERED: Sodium Chloride 0.9% 250 ML IV SCH (17:15)
[2019-12-16] MEDS ORDERED: Ondansetron 4 MG/2 ML SDV IVPUSH PRN (17:26)
[2019-12-16] MEDS ORDERED: Acetaminophen 325 MG Tab PO PRN (17:26)
--- NOTE | 2019-12-16 17:53 | PCM.HP ---
H&P History of Present Illness - General Date of Service: 12/16/19 Admit Problem/Dx: Admission Diagnosis/Problem Admission Diagnosis/Problem Hyponatremia Source of Information: Patient, Family - History of Present Illness Initial Comments - Free Text/Narative: 69-year-old lady with a history of hypertension, dyslipidemia, anxiety presented to the clinic with headache for about 2 weeks duration. She was recently diagnosed and treated for diverticulitis with oral antibiotics. At home she has been pushing PO water intake with her abdominal symptoms She presented to the clinic with complaints of continued nausea, headache, chills. No associated fever. No diarrhea. No abdominal pain. In the clinic she was noted to have severe hyponatremia and sent to the emergency room. The headache is on and off, mostly frontal. No associated neurological deficit. - Related Data Allergies/Adverse Reactions: Allergies Allergy/AdvReac Type Severity Reaction Status Date / Time prochlorperazine edisylate Allergy Delusions Verified 12/16/19 16:04 [From Compazine] Home Medications: Home Meds ALPRAZolam [Alprazolam] 0.5 mg PO BID PRN 03/18/19 [History] Multivit-Min/Iron/Folic/Lutein [Centrum Silver Women Tablet] 1 tab PO DAILY [History] atorvaSTATin [Lipitor] 10 mg PO BEDTIME 03/18/19 [History] Cholecalciferol (Vitamin D3) [Vitamin D] 1 tab PO DAILY 10/20/19 [History] Lisinopril/Hydrochlorothiazide [Lisinopril-HCTZ 10-12.5 MG] 1 tab PO DAILY 10/20 [History] Psyllium Husk [Psyllium Fiber] 1 tab PO DAILY 10/20/19 [History] Omeprazole Magnesium [Prilosec] 20 mg PO BID 11/14/19 [History] QUEtiapine [SEROquel] 50 mg PO BEDTIME 11/14/19 [History] Acetaminophen [Tylenol Extra Strength] 500 mg PO Q4HR PRN 12/16/19 [History] Amoxicillin/Potassium Clav [Amox-Clav 875-125 mg Tablet] 1 tab PO BID 12/16/19 [ History] Ondansetron [Zofran] 4 mg PO Q6H PRN 12/16/19 [History] Past Medical History HEENT History: Reports: Cataract, Impaired Vision Other HEENT History: WEARS GLASSES. 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 HX OF CORTISONE INJECTIONS Neurological History: Reports: Seizure, Other (See Below) Other Neuro History: SEIZURE "MANY YEARS AGO" Psychiatric History: Reports: Anxiety, Depression Endocrine/Metabolic History: Reports: Other (See Below) Other Endocrine/Metabolic History: ELEVATED FASTING GLUCOSE Hematologic History: Reports: None Immunologic History: Reports: None Oncologic (Cancer) History: Reports: Cervix Dermatologic History: Reports: None - Infectious Disease History Infectious Disease History: Reports: None - Past Surgical History Head Surgeries/Procedures: Reports: None HEENT Surgical History: Reports: Adenoidectomy, Tonsillectomy Cardiovascular Surgical History: Reports: None GI Surgical History: Reports: Appendectomy, Colonoscopy, EGD Female Surgical History: Reports: Hysterectomy, Salpingo-Oophorectomy Endocrine Surgical History: Reports: None Neurological Surgical History: Reports: None Musculoskeletal Surgical History: Reports: Shoulder Surgery Other Musculoskeletal Surgeries/Procedures:: RIGHT ROTATOR CUFF SURGERY COUPLE YEARS AGO Oncologic Surgical History: Reports: Other (See Below) Other Oncologic Surgeries/Procedures: Hysterectomy Social & Family History - Family History Family Medical History: Noncontributory - Tobacco Use Smoking Status *Q: Never Smoker - Caffeine Use Caffeine Use: Reports: Coffee - Recreational Drug Use Recreational Drug Use: No - Living Situation & Occupation Living situation: Reports: , with Family Occupation: Retired H&P Review of Systems - Review of Systems: Review Of Systems: See Below General: Reports: Chills, Weakness, Fatigue. Denies: Fever Pulmonary: Denies: Shortness of Breath Cardiovascular: Denies: Chest Pain, Edema Gastrointestinal: Reports: Nausea. Denies: Abdominal Pain, Diarrhea Genitourinary: Denies: Dysuria Psychiatric: Denies: Confusion Neurological: Reports: Headache, Tremors. Denies: Dizziness Exam - Exam Exam: See Below - Vital Signs Vital Signs: Last Vital Signs Temp 97.8 F 12/16/19 17:06 Pulse 81 12/16/19 17:06 Resp 18 12/16/19 17:06 BP 110/54 L 12/16/19 17:06 Pulse Ox 100 12/16/19 17:06 Weight: 131 lb 6.4 oz - Exam General: Alert, Oriented Neck: Supple Lungs: Clear to Auscultation, Normal Respiratory Effort Cardiovascular: Regular Rate, Regular Rhythm GI/Abdominal Exam: Normal Bowel Sounds, Soft, Non-Tender Extremities: No Pedal Edema Skin: Warm Neurological: Normal Speech Neuro Extensive - Mental Status: Alert, Oriented x3, Normal Mood/Affect - Patient Data Lab Results Last 24 hrs: Laboratory studies from [facility] were reviewed UA shows negative nitrate and negative leukocyte esterase Amylase normal at 82 Lipase 550, mildly elevated normal up to 393 WBC 4.9, hemoglobin 13.5, platelet count 452 Sodium 117, BNP 10, potassium 3.5, chloride 82, glucose 109, creatinine 0.9 Bilirubin 0.4, AST, AST, alkaline phosphatase normal Laboratory studies in the past showed a sodium of 140, [address] abd 12/06/19 COMPARISON: CT Abdomen Pelvis w Cont 12/03/2019 6:43 PM FINDINGS: Mediastinum: Small hiatal hernia. Liver: Subcentimeter left hepatic low- attenuation focus suggesting a small cyst.. No mass. Gallbladder and bile ducts : Normal. No calcified stones. No ductal dilation. Pancreas: Normal. No ductal dilation. Spleen: Normal. No splenomegaly. Adrenals: Normal. No mass. Kidneys and ureters: Right renal atrophy.. No hydronephrosis. Stomach and bowel: Features of sigmoid diverticulitis again noted. There is some fluid surrounding the sigmoid colon. The degree of edema has slightly regressed since 12/03/2019. This suggests that the patient may be responding to antibiotic treatment. Recommend clinical correlation. There is no mechanical bowel obstruction. Small hiatal hernia. Appendix: No evidence of appendicitis. Intraperitoneal space: No free air within the abdomen. No flip free fluid. Vasculature: Unremarkable. No abdominal aortic aneurysm. Lymph nodes: Unremarkable. No enlarged lymph nodes. Bladder: Unremarkable as visualized. Reproductive: Previous hysterectomy. Bones/joints: Degenerative lumbar spine disease. Soft tissues: Unremarkable. IMPRESSION: 1. Features suggest improving sigmoid diverticulitis in comparison with prior study 12/03/2019. No evidence of interval perforation. No abscess. No obstruction. 2. Right renal atrophy. 3. Small hiatal hernia. - Problem List (1) Hypertension SNOMED Code(s): 84555104 ICD Code: I10 - ESSENTIAL (PRIMARY) HYPERTENSION Status: Acute Current Visit: Yes (2) Diverticulitis large intestine w/o perforation or abscess w/o bleeding SNOMED Code(s): 7160995 ICD Code: K57.32 - DVTRCLI OF LG INT W/O PERFORATION OR ABSCESS W/O BLEEDING Status: Acute Current Visit: No (3) Hyponatremia syndrome SNOMED Code(s): 0358742 ICD Code: E87.1 - HYPO-OSMOLALITY AND HYPONATREMIA Status: Acute Current Visit: No Problem List Initiated/Reviewed/Updated: Yes Orders Last 24hrs: Active Orders 24 hr Category Date Time Status Patient Status [ADT] Routine ADT 12/16/19 16:25 Active Antiembolic Devices [RC] PER UNIT ROUTINE Care 12/16/19 17:27 Ordered Oxygen Therapy [RC] PRN Care 12/16/19 17:26 Ordered Up With Assistance [RC] ASDIRECTED Care 12/16/19 17:26 Ordered VTE/DVT Education [RC] PER UNIT ROUTINE Care 12/16/19 17:26 Ordered Vital Signs [RC] Q4H Care 12/16/19 17:26 Ordered Fluid Restriction [DIET] Diet 12/17/19 Breakfast Ordered Full Liquid Diet [DIET] Diet 12/16/19 Breakfast Active BASIC METABOLIC PANEL,BMP [CHEM] Timed Lab 12/16/19 23:00 Ordered LIPASE [CHEM] AM Lab 12/17/19 05:11 Ordered OSMOLALITY - SERUM [REF] Routine Lab 12/16/19 17:06 Ordered OSMOLALITY - URINE Routine Lab 12/16/19 17:06 Ordered SODIUM,URINE RANDOM [URCHEM] Routine Lab 12/16/19 17:07 Ordered ALPRAZolam [Alprazolam] Med 12/16/19 17:07 Ordered 0.5 mg PO BID PRN Acetaminophen [Tylenol Extra Strength] Med 12/16/19 17:07 Ordered 500 mg PO Q4HR PRN Acetaminophen [Tylenol] Med 12/16/19 17:26 Ordered 650 mg PO Q4H PRN Cholecalciferol (Vitamin D3) [Vitamin D] Med 12/17/19 09:00 Ordered 1 tab PO DAILY Heparin Sodium Med 12/16/19 22:00 Ordered 5,000 units SUBCUT Q8HR Multivit-Min/Iron/Folic/Lutein [Centrum Silver Women Med 12/17/19 09:00 Ordered Tablet] 1 tab PO DAILY Omeprazole Magnesium [Prilosec] Med 12/16/19 21:00 Ordered 20 mg PO BID Ondansetron Med 12/16/19 17:07 Ordered 4 mg PO Q6H PRN Ondansetron [Zofran ODT] Med 12/16/19 17:26 Ordered 4 mg PO Q6H PRN Ondansetron [Zofran] Med 12/16/19 17:26 Ordered 4 mg IVPUSH Q6H PRN QUEtiapine Med 12/16/19 21:00 Ordered 50 mg PO BEDTIME Sodium Chloride 0.9% @ 50 MLS/HR(1000ml) Med 12/16/19 17:45 Ordered Sodium Chloride 0.9% [Normal Saline] 1,000 ml IV ASDIRECTED Sodium Chloride 0.9% [Normal Saline] 250 ml Med 12/16/19 17:15 Stop Req IV ASDIRECTED atorvaSTATin [Lipitor] Med 12/16/19 21:00 Ordered 10 mg PO BEDTIME lisinopriL [Prinivil] Med 12/17/19 09:00 Ordered 10 mg PO DAILY Antiembolic Hose [OM.PC] Per Unit Routine Oth 12/16/19 17:27 Ordered Resuscitation Status Routine Resus Stat 12/16/19 17:26 Ordered Medication Orders Acetaminophen (Tylenol Extra Strength) 500 mg PO Q4HR PRN PRN Reason: Pain Acetaminophen (Tylenol) 650 mg PO Q4H PRN PRN Reason: Pain (Mild 1-3)/fever Alprazolam (Xanax) 0.5 mg PO BID PRN PRN Reason: Anxiety Atorvastatin Calcium (Lipitor) 10 mg PO BEDTIME [facility]IK[facility] Heparin Sodium (Porcine) (Heparin Sodium) 5,000 units SUBCUT Q8HR [facility] Sodium Chloride (Normal Saline) 250 mls @ 50 mls/hr IV ASDIRECTED [facility] Lisinopril (Prinivil) 10 mg PO DAILY [facility] Multivitamins (Thera) 1 each PO DAILY [facility] Non-Formulary Medication (Cholecalciferol (Vitamin D3) [Vitamin D]) 1 tab PO DAILY [facility] Non-Formulary Medication (Omeprazole Magnesium [Prilosec]) 20 mg PO BID [facility] Non-Formulary Medication (Ondansetron) 4 mg PO Q6H PRN PRN Reason: Nausea Non-Formulary Medication (Quetiapine) 50 mg PO BEDTIME [facility] Ondansetron HCl (Zofran Odt) 4 mg PO Q6H PRN PRN Reason: nausea, able to take PO Ondansetron HCl (Zofran) 4 mg IVPUSH Q6H PRN PRN Reason: Nausea/Vomiting Assessment/Plan Comment:: 69-year-old lady with a history of hypertension, dyslipidemia, anxiety presented to the clinic with headache for about 2 weeks duration. She was recently diagnosed and treated for diverticulitis with oral antibiotics. At home she has been pushing PO water intake with her abdominal symptoms She presented to the clinic with complaints of continued nausea, headache, chills. No associated fever. No diarrhea. No abdominal pain. In the clinic she was noted to have severe hyponatremia and sent to the emergency room. Hyponatremia Appears severe Well repeat sodium now and in 6 hours Check urine osmolality, serum osmolality, urine sodium Stop hydrochlorothiazide Start normal saline at low rate and monitor sodium level closely Fluid restriction 1500 cc Mildly elevated lipase with normal amylase, normal liver enzymes Doubt significant pancreatitis Repeat lipase in the morning This is likely secondary to recent diverticulitis Hypertension Continue lisinopril Stop hydrochlorothiazide History of anxiety Continue alprazolam as needed Continue Seroquel at nighttime She has a history of abdominal discomfort that was worked up by GI dr Caputo with EGD and colonoscopy. She was on proton pump inhibitors Last colonoscopy on 31 October 2019 showed diverticulosis She was diagnosed with diverticulitis on 02 December when she presented with abdominal pain, nausea, vomiting, diarrhea. This was based on a CT of abdomen and pelvis showing sigmoid diverticulitis. Repeat CT on 05 December showed improvement. No perforation seen. She was treated with Cipro and Flagyl, clear liquid diet. Later due to nausea and vomiting the patient was switched to oral Augmentin By today the patient has finished 13 days of antibiotic. Has no abdominal pain. WBC is normal. For now I will hold off on further antibiotics DVT prophylaxis with subcutaneous heparin
[2019-12-16] MEDS: Sodium Chloride 0.9% 1,000 ML IV SCH (18:14)
[2019-12-16] MEDS: Omeprazole 20 MG Cap.CR PO SCH (21:18)
[2019-12-16] MEDS: atorvaSTATin 10 MG Tab PO SCH (21:18)
[2019-12-16] MEDS: QUEtiapine 25 MG Tab PO SCH (21:19)
[2019-12-16] MEDS: ALPRAZolam 0.5 MG Tab PO PRN (21:50)
[2019-12-16] MEDS: Heparin Sodium 5,000 Units/ML Vial SUBCUT SCH (21:51)
[2019-12-16 23:27] LABS: ANION GAP 10.2 mEq/L (7-13); CHLORIDE,CL 86 mmol/L (98-107); SODIUM,NA 121 mmol/L (136-145)
[2019-12-17] MEDS: Heparin Sodium 5,000 Units/ML Vial SUBCUT SCH ×3 (06:26→21:50)
[2019-12-17] MEDS: Cholecalciferol (Vitamin D3) 25 MCG Tab PO SCH (08:51)
[2019-12-17] MEDS: Multivitamins,Therapeutic Tab PO SCH (08:52)
[2019-12-17] MEDS: Lisinopril 10 MG Tab PO SCH (08:52)
[2019-12-17] MEDS: Omeprazole 20 MG Cap.CR PO SCH ×2 (08:53→20:32)
[2019-12-17 10:53] LABS: ANION GAP 12.4 mEq/L (7-13); CHLORIDE,CL 89 mmol/L (98-107); SODIUM,NA 125 mmol/L (136-145)
[2019-12-17] MEDS ORDERED: Potassium Chloride 10 MEQ Tab.ER PO ONE (11:34)
--- NOTE | 2019-12-17 11:44 | PCM.PN ---
- General Info Date of Service: 12/17/19 Admission Dx/Problem (Free Text): Admission Diagnosis/Problem Admission Diagnosis/Problem Hyponatremia and elevated Lipase Functional Status: Reports: Pain Controlled, Ambulating, Urinating. Denies: Tolerating Diet (clear liquid ) - Review of Systems General: Reports: Appetite (acceptable). Denies: Fever, Chills HEENT: Denies: Headaches, Sinus Congestion, Sore Throat, Visual Changes Pulmonary: Denies: Shortness of Breath, Cough, Wheezing Cardiovascular: Denies: Chest Pain, Dyspnea on Exertion, Lightheadedness Gastrointestinal: Reports: Abdominal Pain (mild). Denies: Difficulty Swallowing , Nausea, Vomiting Genitourinary: Denies: Dysuria, Frequency, Urgency, Flank Pain Musculoskeletal: Denies: Neck Pain, Shoulder Pain, Leg Pain, Joint Swelling Skin: Denies: Cyanosis, Jaundice, Bruising, Pruritis, Rash Neurological: Denies: Confusion, Numbness, Tremors Psychiatric: Denies: Confusion, Anxiety, Agitation - Patient Data Vitals - Most Recent: Last Vital Signs Temp 36.1 C 12/17/19 08:00 Pulse 81 12/17/19 08:00 Resp 16 12/17/19 08:00 BP 111/62 12/17/19 08:52 Pulse Ox 98 12/17/19 08:00 Weight - Most Recent: 59.602 kg I&O - Last 24 Hours: Intake & Output 12/16/19 12/17/19 12/17/19 22:59 06:59 14:59 Intake Total 500 100 120 Output Total 200 500 Balance 300 -400 120 Lab Results Last 24 Hours: Laboratory Results - last 24 hr 12/16/19 12/16/19 12/17/19 Range/Units 18:29 23:00 06:25 Sodium 121 L (136-145) mmol/L Potassium 3.2 L (3.5-5.1) mmol/L Chloride 86 L (98-107) mmol/L Carbon Dioxide 28 (21-32) mmol/L Anion Gap 10.2 (7-13) mEq/L BUN 10 (7-18) mg/dL Creatinine 0.71 (0.55-1.02) mg/dL Est Cr Clr Drug Dosing 57.48 mL/min Estimated GFR (MDRD) > 60 Glucose 96 (74-99) mg/dL Calcium 8.1 L (8.5-10.1) mg/dL Lipase 586 H (73-393) U/L Ur Random Sodium 10 (No establ.ref range) mmol/L 12/17/19 Range/Units 06:25 Sodium 125 L (136-145) mmol/L Potassium 3.4 L (3.5-5.1) mmol/L Chloride 89 L (98-107) mmol/L Carbon Dioxide 27 (21-32) mmol/L Anion Gap 12.4 (7-13) mEq/L BUN 9 (7-18) mg/dL Creatinine 0.79 (0.55-1.02) mg/dL Est Cr Clr Drug Dosing 51.66 mL/min Estimated GFR (MDRD) > 60 Glucose 90 (74-99) mg/dL Calcium 8.4 L (8.5-10.1) mg/dL Lipase (73-393) U/L Ur Random Sodium (No establ.ref range) mmol/L Med Orders - Current: Current Medications Acetaminophen (Tylenol Extra Strength) 500 mg PO Q4HR PRN PRN Reason: Pain Alprazolam (Xanax) 0.5 mg PO BID PRN PRN Reason: Anxiety Last Admin: 12/16/19 21:50 Dose: 0.5 mg Atorvastatin Calcium (Lipitor) 10 mg PO BEDTIME [facility] Last Admin: 12/16/19 21:18 Dose: 10 mg Cholecalciferol (Vitamin D3) 125 mcg PO DAILY [facility] Last Admin: 12/17/19 08:51 Dose: 125 mcg Heparin Sodium (Porcine) (Heparin Sodium) 5,000 units SUBCUT Q8HR [facility] Last Admin: 12/17/19 06:26 Dose: 5,000 units Sodium Chloride (Normal Saline) 1,000 mls @ 50 mls/hr IV ASDIRECTED [facility] Last Admin: 12/16/19 18:14 Dose: 50 mls/hr Lisinopril (Prinivil) 10 mg PO DAILY [facility] Last Admin: 12/17/19 08:52 Dose: 10 mg Multivitamins (Thera) 1 each PO DAILY [facility] Last Admin: 12/17/19 08:52 Dose: 1 each Omeprazole (Omeprazole) 20 mg PO BID [facility] Last Admin: 12/17/19 08:53 Dose: 20 mg Ondansetron HCl (Zofran Odt) 4 mg PO Q6H PRN PRN Reason: Nausea Ondansetron HCl (Zofran) 4 mg IVPUSH Q6H PRN PRN Reason: Nausea/Vomiting Potassium Chloride (Klor-Con 10) 40 meq PO ONETIME ONE Stop: 12/17/19 11:35 Quetiapine Fumarate (Seroquel) 50 mg PO BEDTIME [facility] Last Admin: 12/16/19 21:19 Dose: 50 mg Discontinued Medications Acetaminophen (Tylenol) 650 mg PO Q4H PRN PRN Reason: Pain (Mild 1-3)/fever Sodium Chloride (Normal Saline) 250 mls @ 50 mls/hr IV ASDIRECTED [facility] Ondansetron HCl (Zofran Odt) 4 mg PO Q6H PRN PRN Reason: nausea, able to take PO - Exam Quality Assessment: DVT Prophylaxis. No: Supplemental Oxygen, Urine Catheter General: Alert, Oriented, Cooperative, No Acute Distress HEENT: Pupils Equal, Pupils Reactive, EOMI, Mucous Membr. Moist/[place] Neck: Supple, No JVD, No Thyromegaly. No: Lymphadenopathy Lungs: Clear to Auscultation, Normal Respiratory Effort. No: Crackles, Wheezing Cardiovascular: Regular Rate, Regular Rhythm, Murmurs GI/Abdominal Exam: Normal Bowel Sounds, Soft, Non-Tender, No Distention (Female) Exam: Deferred Back Exam: Normal Inspection Extremities: Normal Inspection, No Pedal Edema Skin: Warm, Dry, Intact Neurological: No New Focal Deficit Psy/Mental Status: Alert, Normal Affect, Normal Mood Sepsis Event Note - Evaluation Sepsis Screening Result: No Definite Risk - Focused Exam Vital Signs: Vital Signs Temp Pulse Resp BP BP Pulse Ox 12/17/19 08:52 111/62 12/17/19 08:00 36.1 C 81 16 111/62 98 Date Exam was Performed: 12/17/19 Time Exam was Performed: 11:36 - Problem List Review Problem List Initiated/Reviewed/Updated: Yes - My Orders Last 24 Hours: My Active Orders 12/17/19 11:34 Potassium Chloride [Klor-Con 10] 40 meq PO ONETIME ONE - Plan Plan:: 69-year-old lady with a history of hypertension, dyslipidemia, anxiety presented to the clinic with headache for about 2 weeks duration. She was recently diagnosed and treated for diverticulitis with oral antibiotics. At home she has been pushing PO water intake with her abdominal symptoms She presented to the clinic with complaints of continued nausea, headache, chills. No associated fever. No diarrhea. No abdominal pain. In the clinic she was noted to have severe hyponatremia and elevated Lipase and sent to the emergency room 1. Hyponatremia: on admission sodium was 117 meq/L Well check sodium now and in 6 hours -Check urine osmolality, serum osmolality, urine sodium -Will Stop hydrochlorothiazide -Will continue Start normal saline at low rate and monitor sodium level closely - Continue Fluid restriction 1500 cc 2. elevated lipase with normal amylase, normal liver enzymes - Doubt significant pancreatitis Repeat lipase in the morning, it is improving, will continue clear liquid diet This is likely secondary to recent diverticulitis 3. Hypertension Continue lisinopril -Will hold hydrochlorothiazide because of Hyponatremia 3. History of anxiety Continue alprazolam as needed Continue Seroquel at nighttime 4. History of Diverticulitis: She was diagnosed with diverticulitis on November when she presented with abdominal pain, nausea, vomiting, diarrhea. This was based on a CT of abdomen and pelvis showing sigmoid diverticulitis. Repeat CT on 05 December showed improvement. No perforation seen. She was treated with Cipro and Flagyl, clear liquid diet. Later due to nausea and vomiting the patient was switched to oral Augmentin By today the patient has finished 13 days of antibiotic. Has no abdominal pain. WBC is normal. - will hold off on further antibiotics 5. Hypokalemia: Potassium is low and will give potassium chloride 40 meq PO X 1 dose now DVT prophylaxis with subcutaneous heparin
[2019-12-17] MEDS: Sodium Chloride 0.9% 1,000 ML IV SCH (14:35)
[2019-12-17] MEDS: atorvaSTATin 10 MG Tab PO SCH (20:32)
[2019-12-17] MEDS: QUEtiapine 25 MG Tab PO SCH (20:33)
[2019-12-17] MEDS: ALPRAZolam 0.5 MG Tab PO PRN (21:51)
[2019-12-18] MEDS: Heparin Sodium 5,000 Units/ML Vial SUBCUT SCH (06:02)
[2019-12-18 07:17] LABS: CHLORIDE,CL 97 mmol/L (98-107); SODIUM,NA 132 mmol/L (136-145)
[2019-12-18] MEDS: Lisinopril 10 MG Tab PO SCH (09:07)
[2019-12-18] MEDS: Omeprazole 20 MG Cap.CR PO SCH (09:07)
[2019-12-18] MEDS: Multivitamins,Therapeutic Tab PO SCH ×2 (09:08→09:30)
[2019-12-18] MEDS: Cholecalciferol (Vitamin D3) 25 MCG Tab PO SCH ×2 (09:08→09:31)
--- NOTE | 2019-12-18 09:30 | PCM.DCSUM1 ---
Discharge Summary - Hospital Course Free Text/Narrative:: 69-year-old lady with a history of hypertension, dyslipidemia, anxiety presented to the clinic with headache for about 2 weeks duration. She was recently diagnosed and treated for diverticulitis with oral antibiotics. At home she has been pushing PO water intake with her abdominal symptoms ( pain, Nausea) She presented to the clinic with complaints of continued nausea, headache, chills. No associated fever. No diarrhea. No abdominal pain. In the clinic she was noted to have severe hyponatremia and elevated Lipase and sent to the emergency room and got admitted for hyponatremia. After admission she was placed on fluid restriction 1500 ml/24 hrs and on full liquid diet. Her sodium now 132 meq/L and Lipase has also improved. She is instructed to limit fluid intake to 1500 ml/24 hrs ( or 50 ounce/day) and also continue Full liquid diet. She is advise to see her PMD in this week with labs ( BMP and Lipase) and after reviewing the lab PMD will make decision about her fluid intake and Diet. - Discharge Data Discharge Date: 12/18/19 Discharge Disposition: Home, Self-Care 01 Condition: Good - Referral to Home Health Primary Care Physician: PCP Unobtainable - Patient Instructions Diet: Full Liquid Diet Fluid Restriction: 1500 mL Activity: As Tolerated Driving: May Drive Today Showering/Bathing: May Shower Notify Provider of: Fever, Increased Pain, Nausea and/or Vomiting Other/Special Instructions: 69-year-old lady with a history of hypertension, dyslipidemia, anxiety presented to the clinic with headache for about 2 weeks duration. She was recently diagnosed and treated for diverticulitis with oral antibiotics. At home she has been pushing PO water intake with her abdominal symptoms ( pain, Nausea). She presented to the clinic with complaints of continued nausea, headache, chills. No associated fever. No diarrhea. No abdominal pain. In the clinic she was noted to have severe hyponatremia and elevated Lipase and sent to the emergency room and got admitted for hyponatremia. After admission she was placed on fluid restriction 1500 ml/24 hrs and on fullliquid diet. Her sodium now 132 meq/L and Lipase has also improved. She is instructed to limit fluid intake to 1500 ml/24 hrs ( or 50 ounce/day) and also continue Full liquid diet. She is advise to see her PMD in this week with labs ( BMP and Lipase) and after reviewing the lab PMD will make decision about her fluid intake and Diet. - Discharge Plan Prescriptions/Med Rec: lisinopriL [Prinivil] 10 mg PO DAILY #30 tablet Home Medications: Home Meds ALPRAZolam [Alprazolam] 0.5 mg PO BID PRN 03/18/19 [History] Multivit-Min/Iron/Folic/Lutein [Centrum Silver Women Tablet] 1 tab PO DAILY [History] atorvaSTATin [Lipitor] 10 mg PO BEDTIME 03/18/19 [History] Cholecalciferol (Vitamin D3) [Vitamin D] 1 tab PO DAILY 10/20/19 [History] Psyllium Husk [Psyllium Fiber] 1 tab PO DAILY 10/20/19 [History] Omeprazole Magnesium [Prilosec] 20 mg PO BID 11/14/19 [History] QUEtiapine [SEROquel] 50 mg PO BEDTIME 11/14/19 [History] Acetaminophen [Tylenol Extra Strength] 500 mg PO Q4HR PRN 12/16/19 [History] Amoxicillin/Potassium Clav [Amox-Clav 875-125 mg Tablet] 1 tab PO BID 12/16/19 [ History] Ondansetron [Zofran] 4 mg PO Q6H PRN 12/16/19 [History] lisinopriL [Prinivil] 10 mg PO DAILY #30 tablet 12/18/19 [Rx] Oxygen Therapy Mode: Room Air Patient Handouts: Full Liquid Diet Referrals: Tegan Domínguez NP [Ordering Only Provider] - - Discharge Summary/Plan Comment DC Time >30 min.: Yes Discharge Summary/Plan Comment: 69-year-old lady with a history of hypertension, dyslipidemia, anxiety presented to the clinic with headache for about 2 weeks duration. She was recently diagnosed and treated for diverticulitis with oral antibiotics. At home she has been pushing PO water intake with her abdominal symptoms ( pain, Nausea) She presented to the clinic with complaints of continued nausea, headache, chills. No associated fever. No diarrhea. No abdominal pain. In the clinic she was noted to have severe hyponatremia and elevated Lipase and sent to the emergency room and got admitted for hyponatremia. After admission she was placed on fluid restriction 1500 ml/24 hrs and on full liquid diet. Her sodium now 132 meq/L and Lipase has also improved. She is instructed to limit fluid intake to 1500 ml/24 hrs ( or 50 ounce/day) and also continue Full liquid diet. She is advise to see her PMD in this week with labs ( BMP and Lipase) and after reviewing the lab PMD will make decision about her fluid intake and Diet. Impression and Plan: 1. Hyponatremia: on admission sodium was 117 meq/L - urine osmolality, serum osmolality, urine sodium ( was collected but result not available) -Will not take hydrochlorothiazide - Continue Fluid restriction 1500 ml/24 hrs ( 50 ounce/day) 2. Elevated lipase with normal amylase, normal liver enzymes - Doubt significant pancreatitis Repeat lipase is improving, will continue Full liquid diet This is likely secondary to recent diverticulitis 3. Hypertension Continue lisinopril -Will hold hydrochlorothiazide because of Hyponatremia 3. History of anxiety Continue alprazolam as needed Continue Seroquel at nighttime 4. History of Diverticulitis: She was diagnosed with diverticulitis on November when she presented with abdominal pain, nausea, vomiting, diarrhea. This was based on a CT of abdomen and pelvis showing sigmoid diverticulitis. Repeat CT on 05 December showed improvement. No perforation seen. She was treated with Cipro and Flagyl, clear liquid diet. Later due to nausea and vomiting the patient was switched to oral Augmentin By today the patient has finished 13 days of antibiotic. Has no abdominal pain. WBC is normal. - will hold off on further antibiotics 5. Hypokalemia: Potassium is acceptable w and has receivede potassium chloride 40 meq PO X 1 dose on 12/17/19, will not need scheduled supplement. Disposition: will be going home today and follow with PMD in this week with labs ( BMP and Lipase) - General Info Date of Service: 12/18/19 Admission Dx/Problem (Free Text: Admission Diagnosis/Problem Admission Diagnosis/Problem Hyponatremia and elevated Lipase Subjective Update: Today she is doing well and feels good, No nausea or Vomiting and will be going home today Functional Status: Reports: Pain Controlled, Tolerating Diet, Ambulating, Urinating - Review of Systems General: Reports: Appetite (acceptable). Denies: Fever, Chills HEENT: Denies: Headaches, Sinus Congestion, Sore Throat, Visual Changes Pulmonary: Denies: Shortness of Breath, Cough, Sputum, Wheezing Cardiovascular: Denies: Chest Pain, Dyspnea on Exertion, Lightheadedness Gastrointestinal: Denies: Abdominal Pain, Diarrhea, Nausea Genitourinary: Denies: Dysuria, Burning, Urgency, Flank Pain Musculoskeletal: Denies: Neck Pain, Leg Pain, Foot Pain, Joint Swelling Skin: Denies: Cyanosis, Jaundice, Bruising, Pruritis, Rash Neurological: Denies: Confusion, Dizziness, Tremors Psychiatric: Reports: No Symptoms - Patient Data Vitals - Most Recent: Last Vital Signs Temp 36.9 C 12/17/19 20:00 Pulse 87 12/17/19 20:00 Resp 18 12/17/19 20:00 BP 120/49 L 12/18/19 09:07 Pulse Ox 98 12/17/19 20:00 Weight - Most Recent: 59.602 kg I&O - Last 24 hours: Intake & Output 12/17/19 12/18/19 12/18/19 22:59 06:59 14:59 Intake Total 200 200 Output Total 1200 Balance 200 -1000 Lab Results - Last 24 hrs: Laboratory Results - last 24 hr 12/17/19 12/18/19 Range/Units 06:25 06:20 Sodium 125 L 132 L (136-145) mmol/L Potassium 3.4 L 4.0 (3.5-5.1) mmol/L Chloride 89 L 97 L (98-107) mmol/L Carbon Dioxide 27 30 (21-32) mmol/L Anion Gap 12.4 9.0 (7-13) mEq/L BUN 9 6 L (7-18) mg/dL Creatinine 0.79 0.75 (0.55-1.02) mg/dL Est Cr Clr Drug Dosing 51.66 54.41 mL/min Estimated GFR (MDRD) > 60 > 60 Glucose 90 88 (74-99) mg/dL Calcium 8.4 L 8.0 L (8.5-10.1) mg/dL Lipase 413 H (73-393) U/L Med Orders - Current: Current Medications Acetaminophen (Tylenol Extra Strength) 500 mg PO Q4HR PRN PRN Reason: Pain Alprazolam (Xanax) 0.5 mg PO BID PRN PRN Reason: Anxiety Last Admin: 12/17/19 21:51 Dose: 0.5 mg Atorvastatin Calcium (Lipitor) 10 mg PO BEDTIME [facility] Last Admin: 12/17/19 20:32 Dose: 10 mg Cholecalciferol (Vitamin D3) 125 mcg PO DAILY [facility] Last Admin: 12/18/19 09:08 Dose: 125 mcg Heparin Sodium (Porcine) (Heparin Sodium) 5,000 units SUBCUT Q8HR [facility] Last Admin: 12/18/19 06:02 Dose: 5,000 units Sodium Chloride (Normal Saline) 1,000 mls @ 50 mls/hr IV ASDIRECTED [facility] Last Admin: 12/17/19 14:35 Dose: 50 mls/hr Lisinopril (Prinivil) 10 mg PO DAILY [facility] Last Admin: 12/18/19 09:07 Dose: 10 mg Multivitamins (Thera) 1 each PO DAILY [facility] Last Admin: 12/18/19 09:08 Dose: 1 each Omeprazole (Omeprazole) 20 mg PO BID [facility] Last Admin: 12/18/19 09:07 Dose: 20 mg Ondansetron HCl (Zofran Odt) 4 mg PO Q6H PRN PRN Reason: Nausea Ondansetron HCl (Zofran) 4 mg IVPUSH Q6H PRN PRN Reason: Nausea/Vomiting Quetiapine Fumarate (Seroquel) 50 mg PO BEDTIME [facility] Last Admin: 12/17/19 20:33 Dose: 50 mg Discontinued Medications Acetaminophen (Tylenol) 650 mg PO Q4H PRN PRN Reason: Pain (Mild 1-3)/fever Sodium Chloride (Normal Saline) 250 mls @ 50 mls/hr IV ASDIRECTED [facility] Ondansetron HCl (Zofran Odt) 4 mg PO Q6H PRN PRN Reason: nausea, able to take PO Potassium Chloride (Klor-Con 10) 40 meq PO ONETIME ONE Stop: 12/17/19 11:35 Last Admin: 12/17/19 12:14 Dose: 40 meq - Exam Quality Assessment: Reports: DVT Prophylaxis. Denies: Supplemental Oxygen, Urine Catheter General: Reports: Alert, Oriented, Cooperative, No Acute Distress HEENT: Reports: Pupils Equal, Mucous Membr. Moist/[place] Neck: Reports: Supple, No JVD, No Thyromegaly Lungs: Reports: Clear to Auscultation, Normal Respiratory Effort. Denies: Crackles, Wheezing Cardiovascular: Reports: Regular Rate, Regular Rhythm, Murmurs GI/Abdominal Exam: Normal Bowel Sounds, Soft, Non-Tender, No Distention. No: Guarding, Rigid, Rebound (Female) Exam: Deferred Rectal (Female) Exam: Deferred Back Exam: Reports: Normal Inspection, Full Range of Motion Extremities: Normal Inspection, No Pedal Edema Skin: Reports: Warm, Dry, Intact Neurological: Reports: No New Focal Deficit Psy/Mental Status: Reports: Alert, Normal Affect, Normal Mood
== END 2019-12-18 10:30 | disposition home or self-care (01) ==
LOC: DL.ED 15:38 → DL.MS 16:25
PROVIDERS: ADMIT Internal Medicine; ATTEND Internal Medicine
DX: E87.1 Hypo-osmolality and hyponatremia (principal); E87.6 Hypokalemia; E78.00 Pure hypercholesterolemia, unspecified; I10 Essential (primary) hypertension; E78.5 Hyperlipidemia, unspecified; F41.9 Anxiety disorder, unspecified; R74.8 Abnormal levels of other serum enzymes; Z87.19 Personal history of other diseases of the digestive system; Z88.8 Allergy status to other drugs, medicaments and biological substances; Z79.899 Other long term (current) drug therapy
CPT/HCPCS: 36415; 80048; 83690; 83930; 83935; 84300; 96360; 96361; 96372; 99284; A9270-GY; G0378; J1644; J7030

== ENCOUNTER 2021-06-10 12:10 | Emergency (ER) | payer MEDICARE, BC ==
[2021-06-10] MEDS ORDERED: Aspirin 81 MG Tab.Chew PO ONE (12:41)
--- NOTE | 2021-06-10 12:47 | EDM.PDOC ---
ED HPI GENERAL MEDICAL PROBLEM - General Chief Complaint: Chest Pain Stated Complaint: CHEST PAINS X FEW HOURS [id number] Time Seen by Provider: 06/10/21 12:35 Source of Information: Reports: Patient History Limitations: Reports: No Limitations - History of Present Illness INITIAL COMMENTS - FREE TEXT/NARRATIVE: This 70 yo female patient reports to the ED with left anterior chest pain. The patient reports her chest pain started this morning at about 0800. The patient describes her symptoms as a dull ache. The patient reports she has not taken anything for her current symptoms. The patient reports her symptoms seem to get worse with certain movements. The patient reports she did have a fall to the garage floor about 1 month ago. The patient reports she has been noticing increased joint "popping". Onset: Today Onset Date: 06/10/21 Onset Time: 08:00 Duration: Hour(s): (4) Location: Reports: Chest (left anterior chest wall pain) Quality: Reports: Ache, Dull Severity: Moderate Improves with: Reports: None Worsens with: Reports: None Associated Symptoms: Reports: Chest Pain - Related Data Allergies Allergy/AdvReac Type Severity Reaction Status Date / Time prochlorperazine edisylate Allergy Delusions Verified 12/16/19 16:04 [From Compazine] Home Meds: Home Meds ALPRAZolam [Alprazolam] 0.5 mg PO BID PRN 03/18/19 [History] Multivit-Min/Iron/Folic/Lutein [Centrum Silver Women Tablet] 1 tab PO DAILY 03/18/19 [History] atorvaSTATin [Lipitor] 10 mg PO BEDTIME 03/18/19 [History] Cholecalciferol (Vitamin D3) [Vitamin D] 1 tab PO DAILY 10/20/19 [History] Psyllium Husk [Psyllium Fiber] 1 tab PO DAILY 10/20/19 [History] Omeprazole Magnesium [Prilosec] 20 mg PO BID 11/14/19 [History] QUEtiapine [SEROquel] 50 mg PO BEDTIME 11/14/19 [History] Acetaminophen [Tylenol Extra Strength] 500 mg PO Q4HR PRN 12/16/19 [History] Amoxicillin/Potassium Clav [Amox-Clav 875-125 mg Tablet] 1 tab PO BID 12/16/19 [History] Ondansetron [Zofran] 4 mg PO Q6H PRN 12/16/19 [History] lisinopriL [Prinivil] 10 mg PO DAILY #30 tablet 12/18/19 [Rx] Past Medical History HEENT History: Reports: Cataract, Impaired Vision Other HEENT History: WEARS GLASSES. 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 HX OF CORTISONE INJECTIONS Neurological History: Reports: Seizure, Other (See Below) Other Neuro History: SEIZURE "MANY YEARS AGO" Psychiatric History: Reports: Anxiety, Depression Endocrine/Metabolic History: Reports: Other (See Below) Other Endocrine/Metabolic History: ELEVATED FASTING GLUCOSE Hematologic History: Reports: None Immunologic History: Reports: None Oncologic (Cancer) History: Reports: Cervix Dermatologic History: Reports: None - Infectious Disease History Infectious Disease History: Reports: None - Past Surgical History Head Surgeries/Procedures: Reports: None HEENT Surgical History: Reports: Adenoidectomy, Tonsillectomy Cardiovascular Surgical History: Reports: None GI Surgical History: Reports: Appendectomy, Colonoscopy, EGD Female Surgical History: Reports: Hysterectomy, Salpingo-Oophorectomy Endocrine Surgical History: Reports: None Neurological Surgical History: Reports: None Musculoskeletal Surgical History: Reports: Shoulder Surgery Other Musculoskeletal Surgeries/Procedures:: RIGHT ROTATOR CUFF SURGERY COUPLE YEARS AGO Oncologic Surgical History: Reports: Other (See Below) Other Oncologic Surgeries/Procedures: Hysterectomy Social & Family History - Family History Family Medical History: No Pertinent Family History - Caffeine Use Caffeine Use: Reports: None - Living Situation & Occupation Living situation: Reports: , with Family Occupation: Retired ED ROS GENERAL - Review of Systems Review Of Systems: Comprehensive ROS is negative, except as noted in HPI. ED EXAM, GENERAL - Physical Exam Exam: See Below Exam Limited By: No Limitations General Appearance: Alert, WD/WN, Anxious, Mild Distress Eye Exam: Bilateral Eye: EOMI, Normal Inspection, PERRL Ears: Normal External Exam, Normal Canal, Hearing Grossly Normal, Normal TMs Nose: Normal Inspection, Normal Mucosa, No Blood Throat/Mouth: Normal Inspection, Normal Lips, Normal Teeth, Normal Gums, Normal Oropharynx, Normal Voice, No Airway Compromise Head: Atraumatic, Normocephalic Neck: Normal Inspection, Supple, Non-Tender, Full Range of Motion Respiratory/Chest: No Respiratory Distress, Lungs Clear, Normal Breath Sounds, No Accessory Muscle Use, Other (left anterior chest wall tenderness to palpation) Cardiovascular: Normal Peripheral Pulses, Regular Rate, Rhythm, No Edema, No Gallop, No JVD, No Murmur, No Rub GI/Abdominal: Normal Bowel Sounds, Soft, Non-Tender, No Organomegaly, No Distention, No Abnormal Bruit, No Mass (Female) Exam: Deferred Rectal (Female) Exam: Deferred Back Exam: Normal Inspection, Full Range of Motion, NT Extremities: Normal Inspection, Normal Range of Motion, Non-Tender, Normal Capil neela Refill, No Pedal Edema Neurological: Alert, Oriented, CN II-XII Intact, Normal Cognition, Normal Gait, Normal Reflexes, No Motor/Sensory Deficits Psychiatric: Normal Affect, Normal Mood Skin Exam: Warm, Dry, Intact, Normal Color, No Rash Lymphatic: No Adenopathy #1 Interpretation EKG Date: 06/10/21 Time: 12:34 Rhythm: NSR Rate (Beats/Min): 77 [place]: Normal P-Wave: Present QRS: Normal ST-T: Normal QT: Normal Course - Orders/Labs/Meds Labs: Laboratory Tests 06/10/21 06/10/21 06/10/21 Range/Units 12:33 12:33 12:33 WBC 9.3 (5.0-10.0) 10^3/uL RBC 4.61 (4.2-5.4) 10^6/uL Hgb 13.6 D (12.0-16.0) g/dL Hct 41.8 (37.0-47.0) % MCV 90.7 (80-100) fL MCH 29.5 (27.0-34.0) pg MCHC 32.5 L (33.0-35.0) g/dL Plt Count 350 (150-450) 10^3/uL Neut % (Auto) 70.3 (42.2-75.2) % Lymph % (Auto) 21.0 (20.5-50.1) % [place] % (Auto) 7.0 (2-8) % Eos % (Auto) 1.4 (1.0-3.0) % Baso % (Auto) 0.3 (0.0-1.0) % Sodium 141 (136-145) mmol/L Potassium 4.1 (3.5-5.1) mmol/L Chloride 105 (98-107) mmol/L Carbon Dioxide 28 (21-32) mmol/L Anion Gap 12.1 (7-13) mEq/L BUN 16 (7-18) mg/dL Creatinine 0.91 (0.55-1.02) mg/dL Est Cr Clr Drug Dosing TNP Estimated GFR (MDRD) > 60 BUN/Creatinine Ratio 17.6 (No establ ref range) Glucose 104 H (70-99) mg/dL Lactic Acid 1.0 (0.4-2.0) mmol/L Calcium 8.8 (8.5-10.1) mg/dL Total Bilirubin 0.4 (0.2-1.0) mg/dL AST 23 (15-37) U/L ALT 27 (14-59) U/L Alkaline Phosphatase 95 (46-116) U/L Troponin I High Sens < 4 (<=51) pg/mL Total Protein 6.8 (6.4-8.2) g/dL Albumin 3.5 (3.4-5.0) g/dL Globulin 3.3 Albumin/Globulin Ratio 1.1 Meds: Medications Discontinued Medications Generic Name Dose Route Start Last Admin Trade Name Naren PRN Reason Stop Dose Admin Aspirin 324 mg 06/10/21 12:41 06/10/21 12:48 Aspirin 81 Mg Tab.Chew PO 06/10/21 12:42 324 mg ONETIME ONE Administration Departure - Departure Time of Disposition: 13:35 Disposition: Home, Self-Care 01 Condition: Fair Clinical Impression: Nonspecific chest pain Instructions: Chest Wall Pain, [id number], Nonspecific Chest Pain, Adult, [id number] Forms: ED Department Discharge Care Plan Goals: The patient and her were advised of the examination, lab, EKG and x-ray results during the visit. The patient was encouraged to rest and relax. The patient may take Tylenol or ibuprofen as directed for temporary symptom relief. If the patient has any additional symptoms or concerns, the patient should either return to the emergency department or visit her primary care facility.
--- NOTE | 2021-06-10 12:58 | CR ---
EXAMINATION: Chest 1V Frontal SEX: Female AGE: 70 years CLINICAL HISTORY: 70-year-old female chest pain. Interpretation: No acute new cardiopulmonary abnormality (comparison 18 March 2019). Sternal cardiac cath technologist leads. Evidence of previous right shoulder surgery (surgical "darts" head of humerus). Normal cardiac silhouette (size and configuration). No pulmonary vascular congestion, cephalization of flow, alveolar edema or dependent pleural effusion. No lung mass or hilar lymphadenopathy. No alveolar infiltrate, air bronchograms, or peripheral "groundglass" interstitial lung densities.
[2021-06-10 13:07] LABS: ANION GAP 12.1 mEq/L (7-13); CHLORIDE,CL 105 mmol/L (98-107); SODIUM,NA 141 mmol/L (136-145)
== END 2021-06-10 14:02 | disposition home or self-care (01) ==
LOC: DL.ED 12:10
DX: R07.89 Other chest pain (principal); E78.00 Pure hypercholesterolemia, unspecified; I10 Essential (primary) hypertension; Z79.899 Other long term (current) drug therapy; Z88.8 Allergy status to other drugs, medicaments and biological substances
CPT/HCPCS: 36415; 71045; 80053; 83605; 84484; 85025; 93005; 99285; A9270

== ENCOUNTER 2023-12-26 17:43 | Emergency (ER) | payer MEDICARE, BC ==
[2023-12-26] MEDS: Lactated Ringers 1,000 ML IV ONE (18:05)
[2023-12-26 18:11] LABS: BASOPHILS PERCENT AUTO 0.5 % (0.0-1.0); EOSINOPHILS PERCENT AUTO 1.4 % (1.0-3.0); HEMATOCRIT 41.8 % (37.0-47.0); HEMOGLOBIN 14.1 g/dL (12.0-16.0); MEAN CORPUSCULAR HEMOGLOBIN 30.1 pg (27.0-34.0); MEAN CORPUSCULAR HGB CONC 33.7 g/dL (33.0-35.0); MEAN CORPUSCULAR VOLUME 89.3 fL (80-100); MONOCYTES PERCENT AUTO 10.4 % (2-8); NEUTROPHILS PERCENT AUTO 72.7 % (42.2-75.2); PLATELET COUNT,PLT 281 10^3/uL (150-450); RED BLOOD CELL COUNT 4.68 10^6/uL (4.2-5.4); WHITE BLOOD CELL COUNT,WBC 5.8 10^3/uL (5.0-10.0)
[2023-12-26] MEDS: Ondansetron 4 MG/2 ML SDV IVPUSH ONE (18:15)
[2023-12-26 18:31] LABS: ALBUMIN 3.4 g/dL (3.4-5.0); ANION GAP 13.1 mEq/L (7-13); BILIRUBIN TOTAL 0.5 mg/dL (0.2-1.0); BUN/CREATININE RATIO 12.1 (No establ ref range); C-REACTIVE PROTEIN 2.14 ng/dL (<=0.50); CALCIUM 8.6 mg/dL (8.5-10.1); CREATININE 1.07 mg/dL (0.55-1.02); EST CRCL DRUG DOSING (CG) 40.88 mL/min; POTASSIUM,K 4.1 mmol/L (3.5-5.1); PROTEIN TOTAL,TP 6.7 g/dL (6.4-8.2)
[2023-12-26 18:41] LABS: CORONAVIRUS COVID-19 NAA NEGATIVE (NEGATIVE); INFLUENZA A NAA NEGATIVE (NEGATIVE); INFLUENZA B NAA NEGATIVE (NEGATIVE); RESPIRATORY SYNCYTIAL VIR NAA NEGATIVE (NEGATIVE)
[2023-12-26] MEDS: Iopamidol 612 MG/ML 100 ML Bottle IVPUSH ONE (19:28)
[2023-12-26] MEDS: Take Home: Ondansetron 4 MG Tab.DIS, 5 Tab Pack PO ONE (21:50)
[2023-12-26] MEDS: ALPRAZolam 0.5 MG Tab PO ONE (21:52)
== END 2023-12-26 22:12 | disposition home or self-care (01) ==
LOC: DL.ED 17:43
DX: K52.9 Noninfective gastroenteritis and colitis, unspecified (principal); I10 Essential (primary) hypertension; E78.00 Pure hypercholesterolemia, unspecified; Z90.710 Acquired absence of both cervix and uterus; Z88.8 Allergy status to other drugs, medicaments and biological substances; Z79.899 Other long term (current) drug therapy
CPT/HCPCS: 0241U; 36415; 74177; 80053; 83690; 85025; 86140; 96361; 96374; 99284; A9270; J2405; J7120; Q0162; Q9967

== ENCOUNTER 2024-08-10 07:31 | Day surgery (SDC) | payer MEDICARE, BC ==
[2024-08-10] MEDS: Proparacaine 0.5% Ophth Soln 15 ML Bottle EYELF ONE ×3 (06:34→09:11)
[2024-08-10] MEDS: Povidone-Iodine 5% Sterile Ophth Soln 30 ML Bottle EYELF ONE ×3 (06:35→09:11)
[2024-08-10] MEDS: Lidocaine 1% 30 ML SDV ONE ×2 (06:35→09:11)
[2024-08-10] MEDS: Vancomycin 500 MG SDV EYELF ONE ×2 (06:36→09:11)
[2024-08-10] MEDS: Apraclonidine 0.5% Ophth Soln 5 ML Bot EYELF ONE ×2 (06:36→09:12)
[2024-08-10] MEDS: Dexamethasone/Neomycin/Polymyxin B Ophth Oint 3.5 GM Tube EYELF ONE ×2 (06:37→09:12)
[2024-08-10] MEDS: Diclofenac Sodium 0.1% Ophth Soln 5 ML Bottle EYELF ONE ×2 (06:37→09:12)
[~2024-08-10 07:31] MED LIST changes: +Dexamethasone 4 MG/ML SDV ONE; -Dextrose 5%-0.45% NaCl 1,000 ML IV SCH; +Proparacaine 0.5% Ophth Soln 15 ML Bottle ONE; -Sodium Chloride 0.9% 10 ML Syringe FLUSH PRN
[2024-08-10] MEDS ORDERED: Dexamethasone 4 MG/ML SDV IV ONE (07:32)
[2024-08-10] MEDS ORDERED: Sodium Chloride 0.9% 10 ML Syringe IV ONE (07:32)
[2024-08-10] MEDS ORDERED: Midazolam 1 MG/ML 2 ML SDV IV ONE (07:32)
[2024-08-10] MEDS: Sodium Chloride 0.9% 10 ML Syringe FLUSH PRN (07:57)
[2024-08-10] MEDS ORDERED: Ondansetron 4 MG/2 ML SDV IVPUSH PRN (08:00)
[2024-08-10] MEDS ORDERED: Acetaminophen 325 MG Tab PO PRN (08:00)
[2024-08-10] MEDS ORDERED: Acetaminophen/Codeine 300-30 MG Tab PO PRN (08:00)
[2024-08-10] MEDS: Moxifloxacin 0.5% Ophth Soln 3 ML Bottle EYELF ONE (08:07)
[2024-08-10] MEDS: Tropicamide 1% Ophth Soln 15 ML Bottle EYELF ONE (08:09)
[2024-08-10] MEDS: Timolol Maleate 0.5% Ophth Soln 5 ML Bottle EYELF ONE (08:10)
[2024-08-10] MEDS: Phenylephrine 10% Ophth Soln 5 ML Bot EYELF ONE (08:10)
[2024-08-10] MEDS: Cataract Ophth Solution EYELF ONE (08:11)
[2024-08-10] MEDS ORDERED: Dexamethasone/Neomycin/Polymyxin B Ophth Oint 3.5 GM Tube ONE (10:02)
== END 2024-08-10 09:53 | disposition home or self-care (01) ==
LOC: DL.SDS 07:31
PROVIDERS: ATTEND Ophthalmology
DX: H25.812 Combined forms of age-related cataract, left eye (principal); I10 Essential (primary) hypertension; E78.5 Hyperlipidemia, unspecified; Z88.8 Allergy status to other drugs, medicaments and biological substances; Z79.899 Other long term (current) drug therapy; Z79.82 Long term (current) use of aspirin
CPT/HCPCS: A9270-GY; J1100; J2250; J3370; J3490; V2632

== ENCOUNTER 2024-08-24 07:33 | Day surgery (SDC) | payer MEDICARE, BC ==
[2024-08-24] MEDS ORDERED: Sodium Chloride 0.9% 10 ML Syringe IV ONE (07:34)
[2024-08-24] MEDS ORDERED: Midazolam 1 MG/ML 2 ML SDV IV ONE (07:34)
[2024-08-24] MEDS ORDERED: Dexamethasone 4 MG/ML SDV IV ONE (07:34)
[2024-08-24] MEDS: Proparacaine 0.5% Ophth Soln 15 ML Bottle EYERT ONE ×2 (07:58→09:34)
[2024-08-24] MEDS: Povidone-Iodine 5% Sterile Ophth Soln 30 ML Bottle EYERT ONE ×2 (07:59→09:36)
[2024-08-24] MEDS ORDERED: Acetaminophen/Codeine 300-30 MG Tab PO PRN (08:00)
[2024-08-24] MEDS ORDERED: Ondansetron 4 MG/2 ML SDV IVPUSH PRN (08:00)
[2024-08-24] MEDS ORDERED: Acetaminophen 325 MG Tab PO PRN (08:00)
[2024-08-24] MEDS: Moxifloxacin 0.5% Ophth Soln 3 ML Bottle EYERT ONE (08:00)
[2024-08-24] MEDS: Phenylephrine 10% Ophth Soln 5 ML Bot EYERT ONE (08:01)
[2024-08-24] MEDS: Tropicamide 1% Ophth Soln 15 ML Bottle EYERT ONE (08:01)
[2024-08-24] MEDS: Timolol Maleate 0.5% Ophth Soln 5 ML Bottle EYERT ONE (08:02)
[2024-08-24] MEDS: Cataract Ophth Solution EYERT ONE (08:03)
[2024-08-24] MEDS: Sodium Chloride 0.9% 10 ML Syringe FLUSH PRN (08:05)
[2024-08-24] MEDS: VANCOmycin 500 MG SDV EYERT ONE (09:44)
[2024-08-24] MEDS: Lidocaine 1% 30 ML SDV ONE (09:44)
[2024-08-24] MEDS: Diclofenac Sodium 0.1% Ophth Soln 5 ML Bottle EYERT ONE (09:48)
[2024-08-24] MEDS: Apraclonidine 0.5% Ophth Soln 5 ML Bot EYERT ONE (09:48)
[2024-08-24] MEDS: Dexamethasone/Neomycin/Polymyxin B Ophth Oint 3.5 GM Tube EYERT ONE (09:49)
== END 2024-08-24 10:15 | disposition home or self-care (01) ==
LOC: DL.SDS 07:33
PROVIDERS: ATTEND Ophthalmology
DX: H25.811 Combined forms of age-related cataract, right eye (principal); I10 Essential (primary) hypertension; K21.9 Gastro-esophageal reflux disease without esophagitis; E78.5 Hyperlipidemia, unspecified; Z79.899 Other long term (current) drug therapy
CPT/HCPCS: 66984; A9270; J3370; J1100; J2250; J3490